=== PATIENT | female | born 1970 | race Caucasian/White ===

== ENCOUNTER 2016-09-07 11:51 | Emergency (ER) | payer BC, MEDICARE ==
[2016-09-07 12:09] VITALS: RESP 16
--- NOTE | 2016-09-07 12:47 | ED ---
Back Pain [facility] - General Chief Complaint: Back Pain/Injury Stated Complaint: BACK PAIN Time Seen by Provider: 09/07/16 12:10 Source: patient, family Limitations: no limitations - History of Present Illness Initial Comments: Patient is a 46-year-old female with a medical history significant for end-stage renal failure status post renal transplant, GERD, hypertension, and breast cancer. Patient presents to the emergency department with a chief complaint of thoracic back pain that has progressively gotten worse since Friday of last week. Patient believes symptoms started after she was washing the floors kneeling down on all 4 extremities. Patient currently rates pain 10 out of 10, described as dull and aching sometimes sharp and stabbing. Patient states that the back pain wraps around on both sides into her ribs and it is painful when she takes deep breath. Pain is exacerbated with movement, somewhat relieved at rest. Patient states she has been taking Nati's aspirin and Advil at home with minimal relief. Patient denies chills, fevers, nausea, vomiting, shortness of breath, chest pain, abdominal pain, urinary incontinence or fecal incontinence, saddle anesthesia. Patient denies any recent spinal procedures. Patient denies any radiation into her extremities. Patient states that she is currently on prednisone 10 mg daily and her last lab work was approximately 2 weeks ago where she believes her creatinine was 0.8. Patient states she has had back pain in the past but many years ago. MD Complaint: back pain - Related Data Home Medications Medication Instructions Recorded Confirmed FLUoxetine HCL [PROzac] 40 mg PO DAILY 11/10/14 09/07/16 Omeprazole 40 mg PO BID 11/10/14 09/07/16 Ondansetron HCl [Zofran] 8 mg PO TID-W/MEALS 11/10/14 09/07/16 Metoprolol Tartrate 50 mg PO BID 09/07/16 09/07/16 Mycophenolate Mofetil [Cellcept] 500 mg PO BID 09/07/16 09/07/16 Tacrolimus [Prograf] 2.5 mg PO BID 09/07/16 09/07/16 predniSONE 10 mg PO DAILY 09/07/16 09/07/16 Previous Rx's Medication Instructions Recorded Hydrocodone/Acetaminophen [[place] 1 - 2 each PO Q4HR PRN #30 tab 04/21/15 5-325] HYDROcodone/APAP 5-325MG [[place] 1 tab PO Q4HR PRN #12 tab 09/07/16 5-325] Orphenadrine [Norflex] 100 mg PO Q12H #6 tablet.er 09/07/16 Allergies Allergy/AdvReac Type Severity Reaction Status Date / Time baclofen Allergy "could not Verified 09/07/16 12:05 function" codeine Allergy Vomiting Verified 09/07/16 12:05 sertraline HCl [From Zoloft] Allergy Rash/Hives Verified 09/07/16 12:05 Review of Systems ROS Statement: Those systems with pertinent positive or pertinent negative responses have been documented in the HPI. ROS Other: All systems not noted in ROS Statement are negative. Past Medical History Past Medical History: Cancer, Dialysis, GERD/Reflux, Hypertension, Renal Disease Additional Past Medical History / Comment(s): migraines, - hemodialysis TUE,RACHEL, SAT, end stage renal failure, hx heart murmer, anemia, hx breast cancer History of Any Multi-Drug Resistant Organisms: None Reported Past Surgical History: Section, Hysterectomy, Tonsillectomy Additional Past Surgical History / Comment(s): peritoneal dialysis catheter insertion/removal, hemodialysis fistula-rt arm Past Anesthesia/Blood Transfusion Reactions: Previous Problems w/ Anesthesia, Postoperative Nausea & Vomiting (PONV) Additional Past Anesthesia/Blood Transfusion Reaction / Comment(s): sometimes causes High BP Past Psychological History: Depression Smoking Status: Former smoker Past Alcohol Use History: None Reported Additional Past Alcohol Use History / Comment(s): quit smoking 1988 Past Drug Use History: None Reported - Past Family History Sister(s) Family Medical History: Cancer Mother Family Medical History: Cancer General Exam Limitations: no limitations General appearance: alert, in no apparent distress, other (Patient is sitting in a wheelchair leaning to the left side for comfort.) Head exam: Present: atraumatic, normocephalic, normal inspection Eye exam: Present: normal appearance Pupils: Present: normal accommodation ENT exam: Present: normal exam, normal oropharynx, mucous membranes moist, normal external ear exam Neck exam: Present: normal inspection, full ROM. Absent: tenderness, lymphadenopathy Respiratory exam: Present: normal lung sounds bilaterally. Absent: respiratory distress, wheezes, rales, rhonchi, chest wall tenderness, decreased breath sounds Cardiovascular Exam: Present: regular rate, normal rhythm, normal heart sounds, systolic murmur GI/Abdominal exam: Present: soft, normal bowel sounds. Absent: distended, tenderness Extremities exam: Present: normal inspection, full ROM, normal capillary refill. Absent: tenderness, pedal edema, calf tenderness Back exam: Present: normal inspection, tenderness, vertebral tenderness ( Patient has tenderness starting around the T4 region to the T9 to T10 region). Absent: full ROM (Patient has pain with flexion and extension), CVA tenderness ( R), CVA tenderness (L), paraspinal tenderness, rash noted Expanded Back exam: Absent: saddle anesthesia Back exam: Negative Straight Leg Raising: Left, Right Neurological exam: Present: alert, oriented X3, normal gait, other (No focal deficits noted) Psychiatric exam: Present: normal affect, normal mood Skin exam: Present: warm, dry, intact, normal color. Absent: rash Course Vital Signs 09/07/16 09/07/16 12:07 13:55 Temperature 98 F 97.8 F Pulse Rate 93 78 Respiratory 16 16 Rate Blood Pressure 107/69 134/78 O2 Sat by Pulse 98 98 Oximetry Medical Decision Making - Medical Decision Making Acute thoracic back pain. X-rays negative for fractures. Patient given muscle relaxer and pain medicine and instructed to follow-up with primary care physician or orthopedic surgeon if symptoms persist. Patient instructed to return to the emergency department if symptoms do not improve or get worse. Patient agrees with treatment plan. Discharge instructions and return parameters reviewed. - Radiology Data Radiology results: report reviewed Lumbar sacral spine: Mild levoscoliosis. No spondylolysis or spondylolisthesis. Multiple spondylosis. Loss of disc height present at L5 to S1, L4 to 5, and L3 to 4. Bone mineralization is maintained. Vertebral body height and alignment are normal. Impression: Degenerative disc disease. Thoracic spine x-ray: Mild spinal curvature. Multilevel spondylosis. Thoracic vertebral bodies show preserved height, alignment. Bone mineralization is reduced. Some loss of disc height and intervertebral levels. Impression: Degenerative disc disease. Osteopenia. As read by radiologist Dr. Orellana. Disposition Clinical Impression: Thoracic back pain, Degenerative disc disease, Osteopenia determined by x-ray Disposition: HOME SELF-CARE Condition: Good Instructions: Back Pain (ED) Additional Instructions: Please follow-up with primary care physician as directed. Follow-up with orthopedic surgeon as needed. Please return to the emergency department if symptoms do not improve or get worse. Prescriptions: HYDROcodone/APAP 5-325MG [[place] 5-325] 1 tab PO Q4HR PRN #12 tab PRN Reason: Pain Orphenadrine [Norflex] 100 mg PO Q12H #6 tablet.er Referrals: Magdalena Gray DO [Primary Care Provider] - 1-2 days Lux Payne PAC [PHYSICIAN DESTATICIZER FEEDER] - 09/16/16 (Follow-up as needed.) Time of Disposition: 14:30
--- NOTE | 2016-09-07 12:50 | XR ---
Lumbosacral spine history: Low back strain, pain 5 views of the lumbosacral spine, no comparisons There is a mild levoscoliosis. No spondylolysis or spondylolisthesis. There is multilevel spondylosis . Loss of disc height present at L5-S1, L4-5 and L3-4. Bone mineralization is maintained. Vertebral b wilman height and alignment are normal. IMPRESSION: Degenerative disc disease.
[2016-09-07] MEDS ORDERED: MORPHINE SULFATE 10 MG/ML SYRINGE IM STA (13:39)
--- NOTE | 2016-09-07 13:39 | XR ---
Thoracic spine HISTORY: Mid back strain 3 views of the thoracic spine There is a mild spinal curvature. There is multilevel spondylosis. Thoracic vertebral bodies show pre served height, alignment. Bone mineralization is reduced. Some loss of disc height and intervertebral levels. IMPRESSION: Degenerative disc disease. Osteopenia.
[2016-09-07 13:56] VITALS: BP 134/78; PULSE 78; TEMP 97.8
== END 2016-09-07 13:55 | disposition home or self-care (01) ==
LOC: EC 11:51
DX: M51.34 Other intervertebral disc degeneration, thoracic region (principal); M51.37 Other intervertebral disc degeneration, lumbosacral region; M85.88 Other specified disorders of bone density and structure, other site; M41.86 Other forms of scoliosis, lumbar region; I12.0 Hypertensive chronic kidney disease with stage 5 chronic kidney disease or end stage renal disease; N18.6 End stage renal disease; D64.9 Anemia, unspecified; K21.9 Gastro-esophageal reflux disease without esophagitis; F32.9 Major depressive disorder, single episode, unspecified; Z87.891 Personal history of nicotine dependence; Z79.52 Long term (current) use of systemic steroids; Z79.899 Other long term (current) drug therapy; Z88.5 Allergy status to narcotic agent; Z88.8 Allergy status to other drugs, medicaments and biological substances; Z85.3 Personal history of malignant neoplasm of breast; Z99.2 Dependence on renal dialysis; Z94.0 Kidney transplant status
CPT/HCPCS: 72072; 72110; 99283; 96372; J2270

== ENCOUNTER 2019-03-27 12:22 | Observation (INO) | payer MEDICARE, OTHER ==
[2019-03-27 13:12] LABS: Basophils % (A) 1 %; Eosinophils # (A) 0.1 k/uL (0-0.7); Eosinophils % (A) 2 %; HCT 37.5 % (34.0-46.0); HGB 12.6 gm/dL (11.4-16.0); Lymphocytes # (A) 2.6 k/uL (1.0-4.8); Lymphocytes % (A) 30 %; MCH 29.4 pg (25.0-35.0); MCHC 33.5 g/dL (31.0-37.0); MCV 87.9 fL (80.0-100.0); Mean Platelet Volume 7.2; Monocytes # (A) 0.6 k/uL (0-1.0); Monocytes % (A) 7 %; Neutrophils # (A) 5.1 k/uL (1.3-7.7); Neutrophils % (A) 59 %; Platelet Count 241 k/uL (150-450); RBC 4.27 m/uL (3.80-5.40); WBC 8.7 k/uL (3.8-10.6)
[2019-03-27 13:22] LABS: Albumin 4.3 g/dL (3.5-5.0); Calcium 10.2 mg/dL (8.4-10.2); Magnesium 1.6 mg/dL (1.6-2.3); Potassium 4.4 mmol/L (3.5-5.1); Total Bilirubin 0.8 mg/dL (0.2-1.3)
[2019-03-27 13:24] LABS: INR 0.9 (<1.2); Partial Thromboplastin Time 24.1 sec (22.0-30.0); Prothrombin Time 10.2 sec (9.0-12.0)
--- NOTE | 2019-03-27 13:34 | ED ---
General Adult HPI - General Chief complaint: Chest Pain Stated complaint: Chest Pain Time Seen by Provider: 03/27/19 12:35 Source: EMS Mode of arrival: EMS Limitations: no limitations - History of Present Illness Initial comments: Dictation was produced using [employer] dictation software. please excuse any grammatical, word or spelling errors. Chief Complaint: 49-year-old female presents with chest pain. History of Present Illness: 49-year-old female she presents today with chest pain. Patient has no past medical history of coronary artery disease. She does have history of kidney transplant. She is on immunosuppressive medications and steroids. Her kidney transplants being managed by multimedia editor at [facility]. Patient states she was at work today at rest when she began experiencing substernal chest pressure described as someone sitting on her chest. States the pain did radiate to her jaw and was associated diaphoresis. EMS was called patient was given nitroglycerin and aspirin. Shortly after patient's symptoms were relieved. Patient has any history of coronary artery disease. Patient has no family history of coronary artery disease. Denies tobacco use. no History of hypertension or dyslipidemia. The ROS documented in this emergency department record has been reviewed and confirmed by me. Those systems with pertinent positive or negative responses have been documented in the HPI. All other systems are other negative and/or noncontributory. PHYSICAL EXAM: General Impression: Alert and oriented x3, not in acute distress HEENT: Normocephalic atraumatic, extra-ocular movements intact, pupils equal and reactive to light bilaterally, mucous membranes moist. Cardiovascular: Heart regular rate and rhythm, S1&S2 audible, no murmurs, rubs or gallops Chest: Lungs clear to auscultation bilaterally, no rhonchi, no wheeze, no rales Abdomen: Bowel sounds present, abdomen soft, non-tender, non-distended, no organomegaly Musculoskeletal: Pulses present and equal in all extremities, no peripheral edema Motor: no focal deficits noted Neurological: CN II-XII grossly intact, no focal motor or sensory deficits noted Skin: Intact with no visualized rashes Psych: Normal affect and mood ED course: 49 y Old female presents with symptoms concerning for acute coronary syndrome. Vital signs upon arrival are within acceptable limits. EKG does not show any signs of ischemia or infarction. Return evaluation obtained. CBC, coag panel, metabolic panel is unremarkable. Cardiac enzymes negative. Chest x-ray is not acute. Reevaluated bedside and found to be stable medical condition. She denies any pain at this time. Will admit for serial troponins and cardiology consultation. She had received aspirin prior to coming to the emergency Department provided by EMS. Patient understandable and agreeable to disposition. EKG interpretation: Ventricular rate 70, normal sinus rhythm, HI interval 1:30, QRS 78, QTc 436.. No HI prolongation, no QTC prolongation, no ST or T-wave changes noted. Overall, this EKG is unremarkable - Related Data Home Medications Medication Instructions Recorded Confirmed FLUoxetine HCL [PROzac] 40 mg PO DAILY 11/10/14 09/07/16 Omeprazole 40 mg PO BID 11/10/14 09/07/16 Ondansetron HCl [Zofran] 8 mg PO TID-W/MEALS 11/10/14 09/07/16 Metoprolol Tartrate 50 mg PO BID 09/07/16 09/07/16 Mycophenolate Mofetil [Cellcept] 500 mg PO BID 09/07/16 09/07/16 Tacrolimus [Prograf] 2.5 mg PO BID 09/07/16 09/07/16 predniSONE 10 mg PO DAILY 09/07/16 09/07/16 Previous Rx's Medication Instructions Recorded Hydrocodone/Acetaminophen [[place] 1 - 2 each PO Q4HR PRN #30 tab 04/21/15 5-325] HYDROcodone/APAP 5-325MG [[place] 1 tab PO Q4HR PRN #12 tab 09/07/16 5-325] Orphenadrine [Norflex] 100 mg PO Q12H #6 tablet.er 09/07/16 Allergies Allergy/AdvReac Type Severity Reaction Status Date / Time baclofen Allergy "could not Verified 09/07/16 12:05 function" codeine Allergy Vomiting Verified 09/07/16 12:05 sertraline HCl [From Zoloft] Allergy Rash/Hives Verified 09/07/16 12:05 Review of Systems ROS Statement: Those systems with pertinent positive or pertinent negative responses have been documented in the HPI. ROS Other: All systems not noted in ROS Statement are negative. Past Medical History Past Medical History: Cancer, Dialysis, GERD/Reflux, Hypertension, Renal Disease Additional Past Medical History / Comment(s): migraines, - hemodialysis TUE,RACHEL,SAT, end stage renal failure, hx heart murmer, anemia, hx breast cancer History of Any Multi-Drug Resistant Organisms: None Reported Past Surgical History: Section, Hysterectomy, Tonsillectomy Additional Past Surgical History / Comment(s): peritoneal dialysis catheter insertion/removal, hemodialysis fistula-rt arm, kidney transplant Past Anesthesia/Blood Transfusion Reactions: Previous Problems w/ Anesthesia, Postoperative Nausea & Vomiting (PONV) Additional Past Anesthesia/Blood Transfusion Reaction / Comment(s): sometimes causes High BP Past Psychological History: Depression Smoking Status: Former smoker Past Alcohol Use History: None Reported Past Drug Use History: None Reported - Past Family History Sister(s) Family Medical History: Cancer Mother Family Medical History: Cancer General Exam Limitations: no limitations Course Vital Signs 03/27/19 03/27/19 12:27 14:01 Temperature 98.7 F Pulse Rate 86 76 Respiratory 18 18 Rate Blood Pressure 154/80 132/84 O2 Sat by Pulse 99 99 Oximetry Medical Decision Making - Lab Data Result diagrams: 03/27/19 12:40 03/27/19 12:40 Lab Results 03/27/19 03/27/19 03/27/19 Range/Units 12:40 12:40 12:40 WBC 8.7 (3.8-10.6) k/uL RBC 4.27 (3.80-5.40) m/uL Hgb 12.6 (11.4-16.0) gm/dL Hct 37.5 (34.0-46.0) % MCV 87.9 (80.0-100.0) fL MCH 29.4 (25.0-35.0) pg MCHC 33.5 (31.0-37.0) g/dL RDW 13.0 (11.5-15.5) % Plt Count 241 (150-450) k/uL Neutrophils % 59 % Lymphocytes % 30 % Monocytes % 7 % Eosinophils % 2 % Basophils % 1 % Neutrophils # 5.1 (1.3-7.7) k/uL Lymphocytes # 2.6 (1.0-4.8) k/uL Monocytes # 0.6 (0-1.0) k/uL Eosinophils # 0.1 (0-0.7) k/uL Basophils # 0.0 (0-0.2) k/uL PT 10.2 (9.0-12.0) sec INR 0.9 (<1.2) APTT 24.1 (22.0-30.0) sec Sodium 138 (137-145) mmol/L Potassium 4.4 (3.5-5.1) mmol/L Chloride 104 (98-107) mmol/L Carbon Dioxide 26 (22-30) mmol/L Anion Gap 8 mmol/L BUN 25 H (7-17) mg/dL Creatinine 1.20 H (0.52-1.04) mg/dL Est GFR (CKD-EPI)AfAm 61 (>60 ml/min/1.73 sqM) Est GFR (CKD-EPI)NonAf 53 (>60 ml/min/1.73 sqM) Glucose 86 (74-99) mg/dL Calcium 10.2 (8.4-10.2) mg/dL Magnesium 1.6 (1.6-2.3) mg/dL Total Bilirubin 0.8 (0.2-1.3) mg/dL AST 22 (14-36) U/L ALT 20 (4-34) U/L Alkaline Phosphatase 79 (38-126) U/L Troponin I (0.000-0.034) ng/mL Total Protein 7.0 (6.3-8.2) g/dL Albumin 4.3 (3.5-5.0) g/dL Lipase 121 (23-300) U/L 03/27/19 Range/Units 12:40 WBC (3.8-10.6) k/uL RBC (3.80-5.40) m/uL Hgb (11.4-16.0) gm/dL Hct (34.0-46.0) % MCV (80.0-100.0) fL MCH (25.0-35.0) pg MCHC (31.0-37.0) g/dL RDW (11.5-15.5) % Plt Count (150-450) k/uL Neutrophils % % Lymphocytes % % Monocytes % % Eosinophils % % Basophils % % Neutrophils # (1.3-7.7) k/uL Lymphocytes # (1.0-4.8) k/uL Monocytes # (0-1.0) k/uL Eosinophils # (0-0.7) k/uL Basophils # (0-0.2) k/uL PT (9.0-12.0) sec INR (<1.2) APTT (22.0-30.0) sec Sodium (137-145) mmol/L Potassium (3.5-5.1) mmol/L Chloride (98-107) mmol/L Carbon Dioxide (22-30) mmol/L Anion Gap mmol/L BUN (7-17) mg/dL Creatinine (0.52-1.04) mg/dL Est GFR (CKD-EPI)AfAm (>60 ml/min/1.73 sqM) Est GFR (CKD-EPI)NonAf (>60 ml/min/1.73 sqM) Glucose (74-99) mg/dL Calcium (8.4-10.2) mg/dL Magnesium (1.6-2.3) mg/dL Total Bilirubin (0.2-1.3) mg/dL AST (14-36) U/L ALT (4-34) U/L Alkaline Phosphatase (38-126) U/L Troponin I <0.012 (0.000-0.034) ng/mL Total Protein (6.3-8.2) g/dL Albumin (3.5-5.0) g/dL Lipase (23-300) U/L Disposition Clinical Impression: Chest pain Disposition: ADMITTED IP TO THIS [facility] Condition: Fair Referrals: Magdalena Gray DO [Primary Care Provider] - 1-2 days Decision Time: 15:03
--- NOTE | 2019-03-27 14:33 | XR ---
EXAMINATION TYPE: XR chest 2V DATE OF EXAM: 03/27/2019 HISTORY: Chest Pain. REFERENCE: Previous study dated 10/26/2013. FINDINGS: The lungs remain clear. Pleural spaces are clear. The heart is not enlarged. IMPRESSION: NO ACTIVE INTRATHORACIC DISEASE.
[2019-03-27] MEDS ORDERED: NITROGLYCERIN SL TABS 0.4 MG TAB SUBLINGUAL PRN (15:00)
[2019-03-27] MEDS: METOPROLOL TARTRATE 50 MG TAB PO SCH (20:31)
[2019-03-27] MEDS: PANTOPRAZOLE 40 MG TABLET PO SCH (20:31)
[2019-03-27] MEDS: MYCOPHENOLATE MOFETIL 500 MG TAB PO SCH (20:32)
[2019-03-27] MEDS ORDERED: ACETAMINOPHEN TAB 325 MG TAB PO PRN (21:06)
[2019-03-28 06:42] LABS: Cholesterol 206 mg/dL (<200); HDL Cholesterol 47 mg/dL (40-60); LDL Cholesterol,Calculated 87 mg/dL (0-99); Triglycerides 358 mg/dL (<150)
[2019-03-28] MEDS: PANTOPRAZOLE 40 MG TABLET PO SCH (06:44)
[2019-03-28 07:09] VITALS: RESP 18
[2019-03-28] MEDS: MYCOPHENOLATE MOFETIL 500 MG TAB PO SCH (08:51)
[2019-03-28] MEDS ORDERED: TACROLIMUS 2 MG PO SCH (09:00)
[2019-03-28] MEDS ORDERED: predniSONE 10 MG TAB PO SCH (09:00)
[2019-03-28] MEDS ORDERED: ASPIRIN 325 MG TAB PO SCH (09:00)
[2019-03-28] MEDS: METOPROLOL TARTRATE 50 MG TAB PO SCH (11:08)
[2019-03-28 11:17] VITALS: BP 112/74; PULSE 81; TEMP 98.4
--- NOTE | 2019-03-28 11:58 | P.CRDCN ---
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 She was at work yesterday when she was finalizing her patient's chart and started experiencing discomfort in the chest. The patient described the discomfort as a pressure in the mid of the chest, without any radiation to the arm or neck or shoulders, but it was associated with mild sweating. No shortness of breath or syncope. Because of that she decided to come to the emergency room. In the emergency room she underwent a chest x-ray which showed no acute abnormalities. The EKG showed sinus rhythm without any ST or T-wave abnormalities. The rest of the blood work came in to be unremarkable. The patient continues to be chest pain- free during her hospital stay. She stated on the way to the emergency room she was given nitroglycerin with improvement in her symptoms and the time she arrived the emergency room she was chest pain-free and no more episodes of chest discomfort. I did advise the patient that she needs to have a stress test to rule out severe coronary artery disease. Today is Friday and the patient would like to go home and have the test done as an outpatient. Having said that I am getting the patient up and around and if she is asymptomatic she possibly can go home and have the test done as an outpatient. Past Medical History Past Medical History: Cancer, Dialysis, GERD/Reflux, Hypertension, Renal Disease Additional Past Medical History / Comment(s): migraines, - hemodialysis TUE,RACHEL,SAT, end stage renal failure, pt has kidney transplant 2016 hx heart murmer, anemia, hx breast cancer History of Any Multi-Drug Resistant Organisms: None Reported Past Surgical History: Section, Hysterectomy, Tonsillectomy Additional Past Surgical History / Comment(s): peritoneal dialysis catheter insertion/removal, hemodialysis fistula-rt arm, kidney transplant Past Anesthesia/Blood Transfusion Reactions: Previous Problems w/ Anesthesia, Postoperative Nausea & Vomiting (PONV) Additional Past Anesthesia/Blood Transfusion Reaction / Comment(s): sometimes causes High BP Past Psychological History: Depression Smoking Status: Former smoker Past Alcohol Use History: None Reported Additional Past Alcohol Use History / Comment(s): quit smoking 1988 Past Drug Use History: None Reported - Past Family History Sister(s) Family Medical History: Cancer Additional Family Medical History / Comment(s): melanoma Mother Family Medical History: Cancer Additional Family Medical History / Comment(s): lung cancer Medications and Allergies Home Medications Medication Instructions Recorded Confirmed Type Metoprolol Tartrate 50 mg PO BID 09/07/16 03/27/19 History Mycophenolate Mofetil [Cellcept] 500 mg PO BID 09/07/16 03/27/19 History predniSONE 10 mg PO DAILY 09/07/16 03/27/19 History Omeprazole 20 mbq PO BID 03/27/19 03/27/19 History Tacrolimus [Envarsus Xr] 2 mg PO DAILY 03/27/19 03/27/19 History Allergies Allergy/AdvReac Type Severity Reaction Status Date / Time baclofen Allergy "could not Verified 03/27/19 16:14 function" codeine Allergy Vomiting Verified 03/27/19 16:14 sertraline HCl [From Zoloft] Allergy Rash/Hives Verified 03/27/19 16:14 Physical Exam Vitals: Vital Signs Temp Pulse Pulse Resp BP BP Pulse Ox 03/28/19 11:16 98.4 F 81 18 112/74 97 03/28/19 08:00 18 03/28/19 07:08 97.6 F 75 18 118/78 98 03/28/19 04:00 97.7 F 57 L 17 115/63 98 03/28/19 03:05 71 03/27/19 23:42 97.7 F 71 17 112/57 99 03/27/19 23:39 15 03/27/19 18:47 98.1 F 85 17 107/65 98 03/27/19 16:16 97.8 F 82 18 154/89 99 03/27/19 16:02 98.6 F 03/27/19 16:01 98.6 F 79 20 130/79 98 03/27/19 15:10 83 18 130/79 97 03/27/19 14:01 76 18 132/84 99 03/27/19 12:27 98.7 F 86 18 154/80 99 Intake and Output 03/27/19 03/28/19 03/28/19 22:59 06:59 14:59 Intake Total 480 300 Balance 480 300 Intake: Oral 480 300 Other: Voiding Method Toilet # Voids 1 Weight 78.018 kg - Constitutional General appearance: no acute distress - Respiratory Respiratory: bilateral: CTA - Cardiovascular Rhythm: regular Heart sounds: normal: S1, S2 Results 03/27/19 12:40 03/27/19 12:40 Cardiac Enzymes 03/27/19 03/27/19 03/27/19 Range/Units 12:40 12:40 18:23 AST 22 (14-36) U/L Troponin I <0.012 <0.012 (0.000-0.034) ng/mL 03/28/19 Range/Units 01:05 AST (14-36) U/L Troponin I <0.012 (0.000-0.034) ng/mL Coagulation 03/27/19 Range/Units 12:40 PT 10.2 (9.0-12.0) sec APTT 24.1 (22.0-30.0) sec Lipids 03/28/19 Range/Units 01:05 Triglycerides 358 H (<150) mg/dL Cholesterol 206 H (<200) mg/dL HDL Cholesterol 47 (40-60) mg/dL CBC 03/27/19 Range/Units 12:40 WBC 8.7 (3.8-10.6) k/uL RBC 4.27 (3.80-5.40) m/uL Hgb 12.6 (11.4-16.0) gm/dL Hct 37.5 (34.0-46.0) % Plt Count 241 (150-450) k/uL Comprehensive Metabolic Panel 03/27/19 Range/Units 12:40 Sodium 138 (137-145) mmol/L Potassium 4.4 (3.5-5.1) mmol/L Chloride 104 (98-107) mmol/L Carbon Dioxide 26 (22-30) mmol/L BUN 25 H (7-17) mg/dL Creatinine 1.20 H (0.52-1.04) mg/dL Glucose 86 (74-99) mg/dL Calcium 10.2 (8.4-10.2) mg/dL AST 22 (14-36) U/L ALT 20 (4-34) U/L Alkaline Phosphatase 79 (38-126) U/L Total Protein 7.0 (6.3-8.2) g/dL Albumin 4.3 (3.5-5.0) g/dL Current Medications Generic Name Dose Route Start Last Admin Trade Name Freq PRN Reason Stop Dose Admin Acetaminophen 650 mg 03/27/19 21:06 03/27/19 21:18 Tylenol Tab PO 650 mg Q6HR PRN Administration Fever and/ or Pain Aspirin 325 mg 03/28/19 09:00 Aspirin PO DAILY LAURY Metoprolol Tartrate 50 mg 03/27/19 21:00 03/28/19 11:08 Lopressor PO 50 mg BID LAURY Administration Mycophenolate Mofetil 500 mg 03/27/19 21:00 03/28/19 08:51 Cellcept PO 500 mg BID LAURY Administration Nitroglycerin 0.4 mg 03/27/19 15:00 Nitrostat SUBLINGUAL Q5M PRN Chest Pain Non-Formulary Medication 2 mg 03/28/19 09:00 03/28/19 11:08 Tacrolimus [Envarsus Xr] PO Not Given DAILY LAURY Pantoprazole Sodium 40 mg 03/27/19 21:00 03/28/19 06:44 Protonix PO 40 mg AC-[id number] LAURY Administration Prednisone 10 mg 03/28/19 09:00 03/28/19 08:51 PO 10 mg DAILY LAURY Administration Intake and Output 03/27/19 03/28/19 03/28/19 22:59 06:59 14:59 Intake Total 480 300 Balance 480 300 Intake: Oral 480 300 Other: Voiding Method Toilet # Voids 1 Weight 78.018 kg 03/27/19 12:40 03/27/19 12:40 Assessment and Plan Assessment: Assessment #1 chest discomfort which has resolved #2 status post kidney transplant #3 hypertension Plan #1 acute coronary syndrome was ruled out #2 the patient continues to be chest pain-free throughout her hospital stay #3 stress test need to be done to rule out severe CAD. The patient would like to have the test as an outpatient. Thank you for allowing us participate in her care
--- NOTE | 2019-03-28 15:27 | P.HPIM ---
History of Present Illness This is combined H&P and discharge summary. This is a pleasant 49 years old femalewith past medical history of hypertension, migraine, history of end-stage renal disease was on hemodialysis she got kidney transplant in 2016, history of breast cancer, hysterectomy. This is because of chest painof one-day duration, central nonradiating but it/10 in severity associated with some sweating.currently patient chest pain has completely resolved and she is chest pain-free. She denies any other symptoms. She denies dyspnea. No dizziness, no change in urine or bowel habits. No nausea vomiting. on admission her vitals stable as well as currently.Unremarkable CBC, BMP, INR, Liver Enzymes except for Mildly Elevated Creatinine of 1.2. Patient states that her usual number is between 1-1.4 and that she follows up with [facility] monthly and her appointment is tomorrow to check her creatinine . Triglycerides Are 358 and Cholesterol 206.she has serial troponins that are less than 0.0123. Lipase 121.chest x-ray:no acute process per radiologist.. EKG showing normal sinus rhythm at [address]-T changes. patient Is started on aspirin 325 mg in the emergency room, also she is on metoprolol 50 mg on mycophenolate, Protonix, prednisone and tacrolimus. CONSTITUTIONAL: No fever, no malaise, no fatigue. HEENT: No recent visual problems or hearing problems. Denied any sore throat. CARDIOVASCULAR: No orthopnea, PND, no palpitations, no syncope. PULMONARY: No shortness of breath, no cough, no hemoptysis. GASTROINTESTINAL: No diarrhea, no nausea, no vomiting, no abdominal pain. Normoactive bowel sounds. NEUROLOGICAL: No headaches, no weakness, no numbness. HEMATOLOGICAL: Denies any bleeding or petechiae. GENITOURINARY: Denies any burning micturition, frequency, or urgency. MUSCULOSKELETAL/RHEUMATOLOGICAL: Denies any joint pain, swelling, or any muscle pain. ENDOCRINE: Denies any polyuria or polydipsia. physical exam GENERAL: The patient is alert and oriented x3, not in any acute distress. Well developed, well nourished. HEENT: Pupils are round and equally reacting to light. EOMI. No scleral icterus. No conjunctival pallor. Normocephalic, atraumatic. No pharyngeal erythema. No thyromegaly. CARDIOVASCULAR: S1 and S2 present. No murmurs, rubs, or gallops. PULMONARY: Chest is clear to auscultation, no wheezing or crackles. ABDOMEN: Soft, nontender, nondistended, normoactive bowel sounds. No palpable organomegaly. MUSCULOSKELETAL: No joint swelling or deformity. EXTREMITIES: No cyanosis, clubbing, or pedal edema. NEUROLOGICAL: Gross neurological examination did not reveal any focal deficits. SKIN: No rashes. No petechiae assessment -Chest pain, resolved completely. Patient's wants to do stress test as an outpatient and centerless grinder operator already cleared the patient. Continue with aspirin and metoprolol, nitroglycerin when necessary -history of kidney transplant, continue with her medication of mycophenolate, Protonix, prednisone and tacrolimus. -hypertension, continue with metoprolol -hyperlipidemia, patient is counseled with diets restrictionand low-fat diet. She does not want prescription medication because she is afraid it might interfere with her other antirejection medication and she wants to talk to her as planned physician and centerless grinder operator first. -history of migraine -History of breast cancer -Status post hysterectomy Problems and management plan were discussed with the patient and he verbalized understanding and acceptance Patient was found stable and can be discharged home however he needs follow-up as an outpatient. Patient was instructed to follow up with PCP within one week and patient agreesthe patient was instructed to follow up with Dr. Martinez in one week and chromic appointment and also with her kidney transplant center at [facility] tomorrow as she has appointment Time spent more than 35 minutes Past Medical History Past Medical History: Cancer, Dialysis, GERD/Reflux, Hypertension, Renal Disease Additional Past Medical History / Comment(s): migraines, - hemodialysis TUE,RACHEL,SAT, end stage renal failure, pt has kidney transplant 2016 hx heart murmer, anemia, hx breast cancer History of Any Multi-Drug Resistant Organisms: None Reported Past Surgical History: Section, Hysterectomy, Tonsillectomy Additional Past Surgical History / Comment(s): peritoneal dialysis catheter insertion/removal, hemodialysis fistula-rt arm, kidney transplant Past Anesthesia/Blood Transfusion Reactions: Previous Problems w/ Anesthesia, Postoperative Nausea & Vomiting (PONV) Additional Past Anesthesia/Blood Transfusion Reaction / Comment(s): sometimes causes High BP Past Psychological History: Depression Smoking Status: Former smoker Past Alcohol Use History: None Reported Additional Past Alcohol Use History / Comment(s): quit smoking 1988 Past Drug Use History: None Reported - Past Family History Sister(s) Family Medical History: Cancer Additional Family Medical History / Comment(s): melanoma Mother Family Medical History: Cancer Additional Family Medical History / Comment(s): lung cancer Medications and Allergies Home Medications Medication Instructions Recorded Confirmed Type Metoprolol Tartrate 50 mg PO BID 09/07/16 03/27/19 History Mycophenolate Mofetil [Cellcept] 500 mg PO BID 09/07/16 03/27/19 History predniSONE 10 mg PO DAILY 09/07/16 03/27/19 History Omeprazole 20 mbq PO BID 03/27/19 03/27/19 History Tacrolimus [Envarsus Xr] 2 mg PO DAILY 03/27/19 03/27/19 History Allergies Allergy/AdvReac Type Severity Reaction Status Date / Time baclofen Allergy "could not Verified 03/27/19 16:14 function" codeine Allergy Vomiting Verified 03/27/19 16:14 sertraline HCl [From Zoloft] Allergy Rash/Hives Verified 03/27/19 16:14 Physical Exam Vitals: Vital Signs Temp Pulse Pulse Resp BP BP Pulse Ox 03/28/19 11:16 98.4 F 81 18 112/74 97 03/28/19 08:00 18 03/28/19 07:08 97.6 F 75 18 118/78 98 03/28/19 04:00 97.7 F 57 L 17 115/63 98 03/28/19 03:05 71 03/27/19 23:42 97.7 F 71 17 112/57 99 03/27/19 23:39 15 03/27/19 18:47 98.1 F 85 17 107/65 98 03/27/19 16:16 97.8 F 82 18 154/89 99 03/27/19 16:02 98.6 F 03/27/19 16:01 98.6 F 79 20 130/79 98 03/27/19 15:10 83 18 130/79 97 Intake and Output 03/28/19 03/28/19 03/28/19 06:59 14:59 22:59 Intake Total 300 236 Balance 300 236 Intake: Oral 300 236 Other: Voiding Method Toilet # Voids 1 Results CBC & Chem 7: 03/27/19 12:40 03/27/19 12:40 Labs: Abnormal Lab Results - Last 24 Hours (Table) 03/28/19 Range/Units 01:05 Triglycerides 358 H (<150) mg/dL Cholesterol 206 H (<200) mg/dL Thrombosis Risk Factor Assmnt - Choose All That Apply Any of the Below Risk Factors Present?: Yes Each Factor Represents 1 point: Obesity (BMI >25) Other Risk Factors: No Thrombosis Risk Factor Assessment Total Risk Factor Score: 1 Thrombosis Risk Factor Assessment Level: Low Risk
== END 2019-03-28 15:35 | disposition home or self-care (01) ==
LOC: EC 12:22 → 1SOBS 15:00
PROVIDERS: ADMIT Internal Medicine; ATTEND Internal Medicine
DX: R07.89 Other chest pain (principal); E78.5 Hyperlipidemia, unspecified; I12.0 Hypertensive chronic kidney disease with stage 5 chronic kidney disease or end stage renal disease; N18.6 End stage renal disease; Z80.1 Family history of malignant neoplasm of trachea, bronchus and lung; Z80.8 Family history of malignant neoplasm of other organs or systems; Z85.3 Personal history of malignant neoplasm of breast; Z87.891 Personal history of nicotine dependence; Z90.710 Acquired absence of both cervix and uterus; Z94.0 Kidney transplant status; Z99.2 Dependence on renal dialysis; F32.9 Major depressive disorder, single episode, unspecified; Z79.52 Long term (current) use of systemic steroids; Z88.5 Allergy status to narcotic agent; Z88.8 Allergy status to other drugs, medicaments and biological substances; R79.89 Other specified abnormal findings of blood chemistry; Z79.899 Other long term (current) drug therapy
CPT/HCPCS: 93005 ×2; 99285; 36415; 80061; 80053; 83690; 83735; 84484 ×2; 85025; 85610; 85730; 71046; G0378 ×2; J7517 ×2; J7512

== ENCOUNTER 2021-12-20 16:23 | Inpatient (IN) | payer OTHER, MEDICARE ==
[2021-12-20 17:51] LABS: Basophils % (A) 0 %; Eosinophils % (A) 0 %; HCT 42.4 % (34.0-46.0); HGB 14.2 gm/dL (11.4-16.0); Lymphocytes # (A) 0.5 k/uL (1.0-4.8); Lymphocytes % (A) 3 %; MCHC 33.5 g/dL (31.0-37.0); MCV 89.5 fL (80.0-100.0); Mean Platelet Volume 7.2; Monocytes # (A) 0.5 k/uL (0-1.0); Monocytes % (A) 3 %; Neutrophils # (A) 14.5 k/uL (1.3-7.7); Neutrophils % (A) 93 %; Platelet Count 207 k/uL (150-450); RBC 4.73 m/uL (3.80-5.40); RDW 13.4 % (11.5-15.5); WBC 15.6 k/uL (3.8-10.6)
[2021-12-20 17:58] LABS: Albumin 4.4 g/dL (3.5-5.0); Calcium 9.8 mg/dL (8.4-10.2); Potassium 3.9 mmol/L (3.5-5.1); Total Bilirubin 1.3 mg/dL (0.2-1.3)
[2021-12-20] MEDS ORDERED: SODIUM CHLORIDE 0.9% 2,000 ML IV STA (18:05)
[2021-12-20] MEDS ORDERED: PIPERACILLIN-TAZOBACTAM 3.375 GM in SODIUM CHLORIDE 0.9% 100 ML IVPB STA (18:05)
[2021-12-20] MEDS ORDERED: ACETAMINOPHEN TAB 500 MG TAB PO STA (18:07)
[2021-12-20] MEDS ORDERED: ONDANSETRON 4 MG/2 ML VIAL IVP STA (18:08)
[2021-12-20] MEDS ORDERED: SODIUM CHLORIDE 0.9% 500 ML 500 ML IV ONE (18:12)
--- NOTE | 2021-12-20 18:14 | ED ---
Nausea/Vomiting/Diarrhea HPI - General Source: patient, family, RN notes reviewed Mode of arrival: wheelchair Limitations: no limitations - History of Present Illness MD complaint: nausea, vomiting, diarrhea <Orlin Khan - Last Filed: 12/20/21 23:34> <Frances Lin - Last Filed: 12/26/21 07:41> - General Chief complaint: Nausea/Vomiting/Diarrhea Stated complaint: NVD Time Seen by Provider: 12/20/21 18:04 - History of Present Illness Initial comments: This is a pleasant 51-year-old female with a history of migraine headaches, hypertension, renal disease, kidney transplant in 2016. History of renal failure and subsequent renal transplant Patient states that symptoms started on Friday with headache. She then started having nausea and vomiting and diarrhea. She also has a fever. Patient states she also has had a runny nose and cough. no changes in vision or hearing, no sore throat or difficulty with speech, no neck pain, no chest pain or shortness of breath, no abdominal pain, no changes in urination or bowel movements, no numbness or tingling, no extremity pain, no skin rashes or lesions. Past medical, surgical, social, and family history reviewed. (Orlin Khan) - Related Data Home Medications Medication Instructions Recorded Confirmed Tacrolimus [Envarsus Xr] 2 mg PO DAILY 03/27/19 12/20/21 Acetaminophen [Tylenol Extra 1,000 mg PO Q6H PRN 12/20/21 12/20/21 Strength] mycophenolate mofetiL [Cellcept] 500 mg PO BID 12/20/21 12/20/21 predniSONE 5 mg PO DAILY 12/20/21 12/20/21 Previous Rx's Medication Instructions Recorded Aspirin 81 mg PO DAILY #30 tab 12/25/21 Atorvastatin [Lipitor] 40 mg PO DAILY #30 tab 12/25/21 Metoprolol Tartrate [Lopressor] 75 mg PO BID #45 tab 12/25/21 Pantoprazole [Protonix] 40 mg PO AC-BRKFST #30 tab 12/25/21 Sodium Bicarbonate Tab 650 mg PO BID #60 tab 12/25/21 Sulfamethox-Tmp 800-160Mg [Bactrim 1 tab PO Q12HR #12 tab 12/25/21 DS 800-160 mg] amLODIPine [Norvasc] 5 mg PO DAILY #30 tab 12/25/21 hydrALAZINE HCL [Apresoline] 25 mg PO TID #90 tab 12/25/21 Allergies Allergy/AdvReac Type Severity Reaction Status Date / Time baclofen Allergy "could not Verified 12/20/21 20:33 function" codeine Allergy Vomiting Verified 12/20/21 20:33 sertraline HCl [From Zoloft] Allergy Rash/Hives Verified 12/20/21 20:33 Review of Systems ROS Other: All systems not noted in ROS Statement are negative. <Orlin Khan - Last Filed: 12/20/21 23:34> ROS Other: All systems not noted in ROS Statement are negative. <Frances Lin - Last Filed: 12/26/21 07:41> ROS Statement: Those systems with pertinent positive or pertinent negative responses have been documented in the HPI. Past Medical History Past Medical History: Cancer, Dialysis, GERD/Reflux, Hypertension, Renal Disease Additional Past Medical History / Comment(s): migraines, - hemodialysis TUE ,RACHEL,SAT, end stage renal failure, pt has kidney transplant 2016 hx heart murmer, anemia, hx breast cancer History of Any Multi-Drug Resistant Organisms: None Reported Past Surgical History: Section, Hysterectomy, Tonsillectomy Additional Past Surgical History / Comment(s): peritoneal dialysis catheter insertion/removal, hemodialysis fistula-rt arm, kidney transplant Past Anesthesia/Blood Transfusion Reactions: Previous Problems w/ Anesthesia, Postoperative Nausea & Vomiting (PONV) Additional Past Anesthesia/Blood Transfusion Reaction / Comment(s): sometimes c auses High BP Past Psychological History: Depression Smoking Status: Never smoker Past Alcohol Use History: None Reported Past Drug Use History: None Reported - Past Family History Sister(s) Family Medical History: Cancer Additional Family Medical History / Comment(s): melanoma Mother Family Medical History: Cancer Additional Family Medical History / Comment(s): lung cancer <BillOrlin - Last Filed: 12/20/21 23:34> General Exam Limitations: no limitations General appearance: alert, in no apparent distress Head exam: Present: atraumatic, normocephalic, normal inspection Eye exam: Present: normal appearance, PERRL, EOMI. Absent: scleral icterus, conjunctival injection, periorbital swelling ENT exam: Present: normal exam, normal oropharynx, mucous membranes moist, normal external ear exam. Absent: mucous membranes dry Neck exam: Present: normal inspection, full ROM. Absent: tenderness, meningismus, lymphadenopathy Respiratory exam: Present: normal lung sounds bilaterally. Absent: respiratory distress, wheezes, rales, rhonchi, stridor Cardiovascular Exam: Present: normal rhythm, tachycardia, normal heart sounds. Absent: systolic murmur, diastolic murmur, rubs, gallop, clicks GI/Abdominal exam: Present: soft, normal bowel sounds. Absent: distended, tenderness, guarding, rebound, rigid Extremities exam: Present: normal inspection, full ROM, normal capillary refill. Absent: tenderness, pedal edema, joint swelling, calf tenderness Back exam: Present: normal inspection Neurological exam: Present: alert, oriented X3, CN II-XII intact Psychiatric exam: Present: normal affect, normal mood Skin exam: Present: warm, dry, intact, normal color. Absent: rash <Orlin Khan - Last Filed: 12/20/21 23:34> - General Exam Comments Initial Comments: Ill appearing 51-year-old female in mild distress. Patient noted to be tachycardic. Capillary refill sluggish at 3 seconds. No mottling. (Orlin Khan) Course <Orlin Khan - Last Filed: 12/20/21 23:34> Vital Signs 12/20/21 12/20/21 12/20/21 16:48 19:20 20:43 Temperature 102.3 F H 100 F H Pulse Rate 155 H 131 H 122 H Pulse Rate [ Pulse Oximetery ] Respiratory 18 18 16 Rate Blood Pressure 126/80 112/57 108/52 Blood Pressure [Left Arm] O2 Sat by Pulse 98 96 98 Oximetry 12/20/21 12/20/21 12/21/21 21:52 23:11 02:00 Temperature 98.8 F 98.8 F Pulse Rate 96 96 90 Pulse Rate [ Pulse Oximetery ] Respiratory 18 16 16 Rate Blood Pressure 95/51 103/64 Blood Pressure [Left Arm] O2 Sat by Pulse 98 98 Oximetry 12/21/21 12/21/21 12/21/21 06:00 08:40 11:46 Temperature 98.3 F 99.2 F Pulse Rate 99 Pulse Rate [ 96 96 Pulse Oximetery ] Respiratory 20 18 18 Rate Blood Pressure 104/54 Blood Pressure 98/58 [Left Arm] O2 Sat by Pulse 99 98 Oximetry 12/21/21 12/21/21 12:11 14:51 Temperature Pulse Rate Pulse Rate [ 86 86 Pulse Oximetery ] Respiratory 18 18 Rate Blood Pressure Blood Pressure 108/67 [Left Arm] O2 Sat by Pulse 97 Oximetry - Reevaluation(s) Reevaluation #1: 12/20/21 19:31 Note that the patient's vital signs have improved slightly with a heart rate of 131. Patient still normotensive with a systolic blood pressure of 112/75. Capillary refill approximately 3 seconds. No mottling. Patient in no r espiratory distress. (Orlin Khan) Reevaluation #2: 12/20/21 19:56 She meets criteria for severe sepsis. Additional 1000 L normal saline bolus, patient remains normotensive. Running fluids at 130 mL per hour. I'm going to order another 500 bolus. Patient does have a doubling of her creatinine. Vancomycin added to the Zosyn. Still pending urinalysis. Noncontrast CT abdomen and pelvis ordered. We'll call for admission. Capillary refill 3 seconds. Patient in no respiratory distress. 12/20/21 19:58 (Orlin Khan) Reevaluation #3: 12/20/21 20:05 Patient's troponin came back at 0.050. Urinalysis consistent with urinary tract infection. We'll hold the vancomycin and and on ceftriaxone as this appears to be related to the urinary tract. Note that the patient has a few budding yeast as well. Patient may need expansion beyond ceftriaxone. Lactic acid 2.9. (Orlin Khan) Reevaluation #4: 12/20/21 20:18 Troponin 0.50, likely demand due to heart rate (Orlin Khan) - Consultations Consultation #1: Call placed for admitting physician, [facility] (Orlin Khan) Consultation #2: Case discussed in detail with him from [facility] hospitalist group. Discussed the possibility of transferring the patient first keep the patient here. He believes they can manage the patient here with nephrology consultation. Patient will be admitted to [facility]. Patient currently tachycardic but normotensive. (Orlin Khan) Medical Decision Making - Lab Data Result diagrams: 12/20/21 17:31 12/20/21 17:31 <Orlin Khan - Last Filed: 12/20/21 23:34> - Lab Data Result diagrams: 12/25/21 07:46 12/25/21 07:46 <DeliaFrances A - Last Filed: 12/26/21 07:41> - Medical Decision Making Patient with a history of end-stage renal failure, with subsequent renal transplant. presents with fever, nausea, vomiting, diarrhea, headache, certainly consistent with symptoms of COVID-19. However other etiologies such as other viral syndromes, bacterial infection possible. Going to give the patient an initial dose of Zosyn as she likely needs sepsis criteria. Patient's case is complicated by end-stage renal failure. Well hydrated cautiously with initial 500 mL saline bolus followed by maintenance rate. Patient currently normotensive. Patient has had a runny nose and cough. Viral upper respiratory infection versus pneumonia possible as well. Appears to be consistent with infectious etiology as opposed to cardiac etiology. Patient's triage laboratory work indicates that she has a doubling of her serum creatinine with acute on chronic renal failure. I initially saw this patient in the triage area. Patient to room at 6:17 PM. Note that the patient is on antirejection medications which make her immune compromise. Patient's package center supervisor is at the [facility], Dr. Bell. The case was immediately discussed in detail with ED attending physician. Presentation, findings, treatment plan discussed in detail. Shore Worker Dr. Lin ([facility]) - Lab Data Lab Results 12/20/21 12/20/21 12/20/21 Range/Units 17:31 17:31 17:31 WBC 15.6 H (3.8-10.6) k/uL RBC 4.73 (3.80-5.40) m/uL Hgb 14.2 (11.4-16.0) gm/dL Hct 42.4 (34.0-46.0) % MCV 89.5 (80.0-100.0) fL MCH 30.0 (25.0-35.0) pg MCHC 33.5 (31.0-37.0) g/dL RDW 13.4 (11.5-15.5) % Plt Count 207 (150-450) k/uL MPV 7.2 Neutrophils % 93 % Lymphocytes % 3 % Monocytes % 3 % Eosinophils % 0 % Basophils % 0 % Neutrophils # 14.5 H (1.3-7.7) k/uL Lymphocytes # 0.5 L (1.0-4.8) k/uL Monocytes # 0.5 (0-1.0) k/uL Eosinophils # 0.0 (0-0.7) k/uL Basophils # 0.0 (0-0.2) k/uL Sodium 131 L (137-145) mmol/L Potassium 3.9 (3.5-5.1) mmol/L Chloride 95 L (98-107) mmol/L Carbon Dioxide 19 L (22-30) mmol/L Anion Gap 17 mmol/L BUN 30 H (7-17) mg/dL Creatinine 2.28 H (0.52-1.04) mg/dL Est GFR (CKD-EPI)AfAm 28 (>60 ml/min/1.73 sqM) Est GFR (CKD-EPI)NonAf 24 (>60 ml/min/1.73 sqM) Glucose 221 H (74-99) mg/dL Lactic Ac Sepsis Rflx Plasma Lactic Acid Gabriel (0.7-2.0) mmol/L Calcium 9.8 (8.4-10.2) mg/dL Phosphorus (2.5-4.5) mg/dL Magnesium (1.6-2.3) mg/dL Total Bilirubin 1.3 (0.2-1.3) mg/dL AST 33 (14-36) U/L ALT 27 (4-34) U/L Alkaline Phosphatase 98 (38-126) U/L Troponin I (0.000-0.034) ng/mL Total Protein 7.0 (6.3-8.2) g/dL Albumin 4.4 (3.5-5.0) g/dL Amylase 70 (30-110) U/L Lipase 43 (23-300) U/L Urine Color Urine Appearance (Clear) Urine pH (5.0-8.0) Ur Specific [place] (1.001-1.035) Urine Protein (Negative) Urine Glucose (UA) (Negative) Urine Ketones (Negative) Urine Blood (Negative) Urine Nitrite (Negative) Urine Bilirubin (Negative) Urine Urobilinogen (<2.0) mg/dL Ur Leukocyte Esterase (Negative) Urine RBC (0-5) /hpf Urine WBC (0-5) /hpf Urine WBC Clumps (None) /hpf Ur Squamous Epith Cells (0-4) /hpf Urine Bacteria (None) /hpf Hyaline Casts (0-2) /lpf Urine Mucus (None) /hpf Urine Yeast (Budding) (None) /hpf Coronavirus (PCR) Not Detected (Not Detectd) 12/20/21 12/20/21 12/20/21 Range/Units 18:22 18:22 18:22 WBC (3.8-10.6) k/uL RBC (3.80-5.40) m/uL Hgb (11.4-16.0) gm/dL Hct (34.0-46.0) % MCV (80.0-100.0) fL MCH (25.0-35.0) pg MCHC (31.0-37.0) g/dL RDW (11.5-15.5) % Plt Count (150-450) k/uL MPV Neutrophils % % Lymphocytes % % Monocytes % % Eosinophils % % Basophils % % Neutrophils # (1.3-7.7) k/uL Lymphocytes # (1.0-4.8) k/uL Monocytes # (0-1.0) k/uL Eosinophils # (0-0.7) k/uL Basophils # (0-0.2) k/uL Sodium (137-145) mmol/L Potassium (3.5-5.1) mmol/L Chloride (98-107) mmol/L Carbon Dioxide (22-30) mmol/L Anion Gap mmol/L BUN (7-17) mg/dL Creatinine (0.52-1.04) mg/dL Est GFR (CKD-EPI)AfAm (>60 ml/min/1.73 sqM) Est GFR (CKD-EPI)NonAf (>60 ml/min/1.73 sqM) Glucose (74-99) mg/dL Lactic Ac Sepsis Rflx Plasma Lactic Acid Gabriel 2.9 H* (0.7-2.0) mmol/L Calcium (8.4-10.2) mg/dL Phosphorus (2.5-4.5) mg/dL Magnesium (1.6-2.3) mg/dL Total Bilirubin (0.2-1.3) mg/dL AST (14-36) U/L ALT (4-34) U/L Alkaline Phosphatase (38-126) U/L Troponin I 0.050 H* (0.000-0.034) ng/mL Total Protein (6.3-8.2) g/dL Albumin (3.5-5.0) g/dL Amylase (30-110) U/L Lipase (23-300) U/L Urine Color Yellow Urine Appearance Cloudy H (Clear) Urine pH 6.0 (5.0-8.0) Ur Specific [place] 1.021 (1.001-1.035) Urine Protein 4+ H (Negative) Urine Glucose (UA) Negative (Negative) Urine Ketones Negative (Negative) Urine Blood Moderate H (Negative) Urine Nitrite Negative (Negative) Urine Bilirubin Negative (Negative) Urine Urobilinogen <2.0 (<2.0) mg/dL Ur Leukocyte Esterase Moderate H (Negative) Urine RBC 18 H (0-5) /hpf Urine WBC 94 H (0-5) /hpf Urine WBC Clumps Few H (None) /hpf Ur Squamous Epith Cells 2 (0-4) /hpf Urine Bacteria Rare H (None) /hpf Hyaline Casts 3 H (0-2) /lpf Urine Mucus Rare H (None) /hpf Urine Yeast (Budding) Few H (None) /hpf Coronavirus (PCR) (Not Detectd) 12/20/21 12/20/21 Range/Units 18:22 19:39 WBC (3.8-10.6) k/uL RBC (3.80-5.40) m/uL Hgb (11.4-16.0) gm/dL Hct (34.0-46.0) % MCV (80.0-100.0) fL MCH (25.0-35.0) pg MCHC (31.0-37.0) g/dL RDW (11.5-15.5) % Plt Count (150-450) k/uL MPV Neutrophils % % Lymphocytes % % Monocytes % % Eosinophils % % Basophils % % Neutrophils # (1.3-7.7) k/uL Lymphocytes # (1.0-4.8) k/uL Monocytes # (0-1.0) k/uL Eosinophils # (0-0.7) k/uL Basophils # (0-0.2) k/uL Sodium (137-145) mmol/L Potassium (3.5-5.1) mmol/L Chloride (98-107) mmol/L Carbon Dioxide (22-30) mmol/L Anion Gap mmol/L BUN (7-17) mg/dL Creatinine (0.52-1.04) mg/dL Est GFR (CKD-EPI)AfAm (>60 ml/min/1.73 sqM) Est GFR (CKD-EPI)NonAf (>60 ml/min/1.73 sqM) Glucose (74-99) mg/dL Lactic Ac Sepsis Rflx Y Plasma Lactic Acid Gabriel (0.7-2.0) mmol/L Calcium (8.4-10.2) mg/dL Phosphorus 1.6 L (2.5-4.5) mg/dL Magnesium 1.3 L (1.6-2.3) mg/dL Total Bilirubin (0.2-1.3) mg/dL AST (14-36) U/L ALT (4-34) U/L Alkaline Phosphatase (38-126) U/L Troponin I (0.000-0.034) ng/mL Total Protein (6.3-8.2) g/dL Albumin (3.5-5.0) g/dL Amylase (30-110) U/L Lipase (23-300) U/L Urine Color Urine Appearance (Clear) Urine pH (5.0-8.0) Ur Specific [place] (1.001-1.035) Urine Protein (Negative) Urine Glucose (UA) (Negative) Urine Ketones (Negative) Urine Blood (Negative) Urine Nitrite (Negative) Urine Bilirubin (Negative) Urine Urobilinogen (<2.0) mg/dL Ur Leukocyte Esterase (Negative) Urine RBC (0-5) /hpf Urine WBC (0-5) /hpf Urine WBC Clumps (None) /hpf Ur Squamous Epith Cells (0-4) /hpf Urine Bacteria (None) /hpf Hyaline Casts (0-2) /lpf Urine Mucus (None) /hpf Urine Yeast (Budding) (None) /hpf Coronavirus (PCR) (Not Detectd) - EKG Data EKG Comments: EKG done a 5100. The ED attending physician reveals sinus tachycardia with minimal ST depression of 0.025 mV noted in the lateral precordial leads. No evidence of ST elevation. No T-wave inversion. Normal axis. Normal QRS morphology otherwise. When co mpared to the previous study from March 2019, sinus tachycardia now present. (Orlin Khan) Critical Care Time Critical Care Time: Yes (45) <Orlin Khan - Last Filed: 12/20/21 23:34> Critical Care Time: Multiple diagnoses, reevaluation patient. Evaluation of patient's response to treatment. Evaluation diagnostic tests. Discussion with ED attending. Multiple discussions with the patient. Comp Case. (Orlin Khan) Disposition Is patient prescribed a controlled substance at d/c from ED?: No Decision to Admit Reason: Admit from EC Decision Time: 18:41 <Orlin Khan - Last Filed: 12/20/21 23:34> <Frances Lin - Last Filed: 12/26/21 07:41> Clinical Impression: Acute kidney injury, Dehydration, Hypomagnesemia, Severe sepsis, Pyelo nephritis, Elevated troponin Narrative: Elevated troponin, likely due to demand (Orlin Khan) Disposition: ADMITTED IP TO THIS HOSP Condition: Stable
--- NOTE | 2021-12-20 19:02 | XR ---
EXAMINATION TYPE: XR abdomen 3V DATE OF EXAM: 12/20/2021 CLINICAL HISTORY: Pain and nausea and vomiting TECHNIQUE: One upright and 2 supine radiographs were obtained. COMPARISON: None. FINDINGS: Scattered gas is seen in non-distended small bowel loops. Gas and fecal material is seen in non-distended colon. There is no visceromegaly, pneumoperitoneum, or abnormal calcification appr eciated. The lung bases are clear and the osseous structures are intact. IMPRESSION: No acute radiographic process.
[2021-12-20 19:23] LABS: Magnesium 1.3 mg/dL (1.6-2.3); Phosphorus 1.6 mg/dL (2.5-4.5)
[2021-12-20] MEDS: SODIUM CHLORIDE 0.9% 1,000 ML IV SCH ×2 (19:23→21:11)
[2021-12-20 19:26] LABS: Appearance,Urine Cloudy (Clear); Bacteria,Urine Rare /hpf; Bilirubin,Urine Negative (Negative); Blood,Urine Moderate (Negative); Budding Yeast,Urine Few /hpf; Color,Urine Yellow; Glucose,Urine (UA) Negative (Negative); Hyaline Casts,Urine 3 /lpf (0-2); Ketones,Urine Negative (Negative); Leukocyte Esterase,Urine Moderate (Negative); Mucus,Urine Rare /hpf; Nitrite,Urine Negative (Negative); Protein,Urine 4+ (Negative); RBC,Urine 18 /hpf (0-5); Specific Gravity,Urine 1.021 (1.001-1.035); Squamous Epithelial Cell,Urine 2 /hpf (0-4); Urobilinogen,Urine <2.0 mg/dL (<2.0); WBC,Urine 94 /hpf (0-5)
[2021-12-20] MEDS ORDERED: Magnesium Replacement Protocol 1 EACH MISC MISCELLANE PRN (19:27)
[2021-12-20] MEDS: MAGNESIUM SULFATE-D5W PMX 1 GM in DEXTROSE/WATER 1 100ML.BAG IVPB SCH ×2 (19:38→21:04)
[2021-12-20] MEDS ORDERED: VANCOMYCIN IV PER PHARMACY 1 EACH MISC MISCELLANE PRN (19:52)
[2021-12-20] MEDS ORDERED: SODIUM CHLORIDE 0.9% 1,000 ML IV ONE (19:57)
[2021-12-20] MEDS ORDERED: NALOXONE 0.4 MG/ML 1 ML VIAL IV PRN (20:20)
[2021-12-20] MEDS ORDERED: ONDANSETRON 4 MG/2 ML VIAL IVP PRN (20:20)
[2021-12-20] MEDS ORDERED: VANCOMYCIN 1,500 MG in SODIUM CHLORIDE 0.9% 250 ML IVPB ONE (20:30)
[2021-12-20] MEDS: ASPIRIN 325 MG TAB PO SCH (21:04)
[2021-12-20] MEDS: METOPROLOL TARTRATE 50 MG TAB PO SCH (21:04)
[2021-12-20] MEDS: PANTOPRAZOLE 40 MG/10 ML VIAL IVP SCH (21:05)
--- NOTE | 2021-12-20 21:16 | XR ---
EXAMINATION: XR chest 2V DATE AND TIME: 12/20/2021 7:34 PM CLINICAL INDICATION: PHH; Cough TECHNIQUE: AP and lateral COMPARISON: None FINDINGS: The lungs are clear. The pleural spaces are negative. The cardiac silhouette is not enlarged. The remainder of the mediastinal silhouette is unremarkable. The skeletal structures and soft tissues are negative for acute findings. IMPRESSION: NO ACUTE PROCESS.
--- NOTE | 2021-12-20 21:55 | CT ---
EXAMINATION TYPE: CT abdomen pelvis wo con DATE OF EXAM: 12/20/2021 HISTORY: Fever. Elevated WBC. Sepsis. CT DLP: 551.3 mGycm. Automated Exposure Control for Dose Reduction was Utilized. TECHNIQUE: CT scan of the abdomen and pelvis is performed without oral or IV contrast. COMPARISON: None available. FINDINGS: Within the limitations of a non-contrast study, the following observations are made. LUNG BASES: No significant abnormality is appreciated. LIVER/GB: No significant abnormality is appreciated. PANCREAS: No significant abnormality is seen. SPLEEN: No significant abnormality is seen. ADRENALS: No significant abnormality is seen. KIDNEYS, URETERS, BLADDER: Bilateral qaw[place]angin kidneys are atrophic and unremarkable. The right transpla nt kidney measures 7.7 x 6.5 x 6.0 cm. There is no jessie hydronephrosis, but the upper collecting sys tem is mildly prominent. There is a subtle perinephric reticulation pattern circumferential to the tr ansplant kidney, which is a nonspecific finding, with no perinephric fluid or gas collections. No tra nsplant kidney calcifications. The transplant ureter is not dilated. The urinary bladder is unremarka ble. PERITONEAL CAVITY: No peritoneal fluid or pneumoperitoneum. EXTRAPERITONEAL SPACES: No adenopathy. No fluid or gas collections. BOWEL: No obstruction. Colonic stool volume is unremarkable. GENITAL ORGANS: No gross abnormality seen. OSSEOUS STRUCTURES: No focal findings. IMPRESSION: No definite acute radiographic process.
[2021-12-21] MEDS: ACETAMINOPHEN TAB 325 MG TAB PO PRN ×2 (03:50→12:22)
[2021-12-21] MEDS: SODIUM CHLORIDE 0.9% 1,000 ML IV SCH ×6 (04:56→23:54)
[2021-12-21 05:55] LABS: Basophils % (A) 0 %; Eosinophils % (A) 0 %; HCT 36.1 % (34.0-46.0); HGB 11.5 gm/dL (11.4-16.0); Lymphocytes # (A) 0.5 k/uL (1.0-4.8); Lymphocytes % (A) 5 %; MCH 29.3 pg (25.0-35.0); MCHC 31.9 g/dL (31.0-37.0); MCV 91.9 fL (80.0-100.0); Mean Platelet Volume 7.3; Monocytes # (A) 0.4 k/uL (0-1.0); Monocytes % (A) 4 %; Neutrophils # (A) 9.9 k/uL (1.3-7.7); Neutrophils % (A) 90 %; Platelet Count 142 k/uL (150-450); RBC 3.93 m/uL (3.80-5.40); RDW 13.1 % (11.5-15.5)
[2021-12-21 05:58] LABS: Albumin 3.1 g/dL (3.5-5.0); Calcium 8.1 mg/dL (8.4-10.2); Potassium 3.8 mmol/L (3.5-5.1); Total Bilirubin 0.6 mg/dL (0.2-1.3); Total Protein 5.2 g/dL (6.3-8.2)
[2021-12-21] MEDS: metroNIDAZOLE-NS PMX 500 MG in SALINE 1 100ML.BAG IVPB SCH ×2 (08:51→16:26)
[2021-12-21] MEDS: PANTOPRAZOLE 40 MG/10 ML VIAL IVP SCH ×2 (08:52→22:33)
[2021-12-21] MEDS: METOPROLOL TARTRATE 50 MG TAB PO SCH ×2 (08:52→22:33)
[2021-12-21] MEDS: ASPIRIN 325 MG TAB PO SCH ×2 (08:52→22:33)
[2021-12-21] MEDS: ENOXAPARIN 30 MG/0.3 ML SYRINGE SQ SCH (08:53)
[2021-12-21] MEDS: predniSONE 10 MG TAB PO SCH (10:27)
[2021-12-21] MEDS ORDERED: HYDROCORTISONE SUCCINATE 100 MG/2 ML VIAL IV STA ×2 (11:07→12:23)
--- NOTE | 2021-12-21 11:07 | P.NPCON ---
History of Present Illness - Reason for Consult acute renal failure - History of Present Illness Patient is a 51-year-old female with history of end-stage renal disease status post donor transplant in 2016 with baseline creatinine about 1.2 mg/dL. Patient is maintained on CellCept, envarsus and prednisone. Patient is admitted to the hospital with complaints of increased weakness. She started off with a headache and felt it was due to a migraine headache. Patient denied any abdominal pain. She did have some nausea. No diarrhea. No urinary symptoms. UA is suggestive of UTI. Patient was significantly hypotensive with systolic blood pressure in the 90s. She has received IV fluid boluses and has been started on antibiotics. Overall she states she is feeling better. Serum creatinine was 2.2 yesterday and it is at 2.3 for today. Ultrasound of the transplant kidney did not show any hydronephrosis. Patient is voiding fairly well. No complaints of fever. Patient did have some cough which she feels is due to her ALLERGIES. Review of Systems As per HPI other systems negative Past Medical History Past Medical History: Cancer, Dialysis, GERD/Reflux, Hypertension, Renal Disease Additional Past Medical History / Comment(s): migraines, - hemodialysis TUE,RACHEL,SAT, end stage renal failure, pt has kidney transplant 2016 hx heart murmer, anemia, hx breast cancer History of Any Multi-Drug Resistant Organisms: None Reported Past Surgical History: Section, Hysterectomy, Tonsillectomy Additional Past Surgical History / Comment(s): peritoneal dialysis catheter insertion/removal, hemodialysis fistula-rt arm, kidney transplant Past Anesthesia/Blood Transfusion Reactions: Previous Problems w/ Anesthesia, Postoperative Nausea & Vomiting (PONV) Additional Past Anesthesia/Blood Transfusion Reaction / Comment(s): sometimes causes High BP Past Psychological History: Depression Smoking Status: Never smoker Past Alcohol Use History: None Reported Additional Past Alcohol Use History / Comment(s): quit smoking 1988 Past Drug Use History: None Reported - Past Family History Sister(s) Family Medical History: Cancer Additional Family Medical History / Comment(s): melanoma Mother Family Medical History: Cancer Additional Family Medical History / Comment(s): lung cancer Medications and Allergies Home Medications Medication Instructions Recorded Confirmed Type Metoprolol Tartrate 50 mg PO BID 09/07/16 12/20/21 History Tacrolimus [Envarsus Xr] 2 mg PO DAILY 03/27/19 12/20/21 History Acetaminophen [Tylenol Extra 1,000 mg PO Q6H PRN 12/20/21 12/20/21 History Strength] mycophenolate mofetiL [Cellcept] 500 mg PO BID 12/20/21 12/20/21 History predniSONE 5 mg PO DAILY 12/20/21 12/20/21 History Allergies Allergy/AdvReac Type Severity Reaction Status Date / Time baclofen Allergy "could not Verified 12/20/21 20:33 function" codeine Allergy Vomiting Verified 12/20/21 20:33 sertraline HCl [From Zoloft] Allergy Rash/Hives Verified 12/20/21 20:33 Physical Exam Vitals: Vital Signs Temp Pulse Pulse Resp BP BP Pulse Ox 12/21/21 08:40 99.2 F 96 18 98/58 98 12/21/21 06:00 98.3 F 99 20 104/54 99 12/21/21 02:00 90 16 103/64 98 12/20/21 23:11 98.8 F 96 16 95/51 98 12/20/21 21:52 98.8 F 96 18 12/20/21 20:43 100 F H 122 H 16 108/52 98 12/20/21 19:20 131 H 18 112/57 96 12/20/21 16:48 102.3 F H 155 H 18 126/80 98 Intake and Output 12/20/21 12/21/21 12/21/21 22:59 06:59 14:59 Other: Weight 77.111 kg 77.111 kg Awake, comfortable, not in any acute distress Examination of the heart S1 and S2 Examination of the lungs bilateral breath sounds are heard Abdomen is soft nontender, right renal allograft nontender Examination of the lower extremities shows no evidence of edema BUTT TRIMMER exam grossly intact Results - Lab Results Most recent lab results Calcium 8.1 mg/dL (8.4-10.2) L 12/21/21 05:20 Phosphorus 3.0 mg/dL (2.5-4.5) 12/21/21 05:20 Magnesium 2.0 mg/dL (1.6-2.3) 12/21/21 05:20 12/21/21 05:20 12/21/21 05:20 Assessment and Plan Assessment: 1. Acute kidney injury secondary to hypotension and sepsis. Nonoliguric 2. UTI currently maintained on ceftriaxone. Urine cultures pending 3. Hypotension from underlying infection, sepsis in a patient maintained on prednisone. Patient will be given stress dose steroids 4. Status post donor renal transplant in 2015 maintained on tacrolimus, CellCept and 5 mg of prednisone. Baseline creatinine about 1.2 mg/dL as of 05/28/2021 5. History of migraine headaches Plan: Continue IV fluids Follow-up on urine cultures Prednisone 30 mg today and tomorrow and then resume 5 mg daily subsequently May resume home dose of tacrolimus and CellCept unless patient remains significantly hypotensive or worsens from sepsis standpoint. Thank you for the consultation. We'll continue to follow the patient with you during her hospitalization
--- NOTE | 2021-12-21 11:54 | P.HPIM ---
History of Present Illness H&P Date: 12/21/21 Chief Complaint: Headache 51-year-old woman with a medical history of end-stage renal disease status post donor kidney transplant in 2016 with CK D stage III of the transplant, hypertension, history of breast cancer, recurrent migraines presented with headache, nausea, vomiting. Patient says that this is typical of her migraine symptoms and they usually go away within 24 hours, however, this time the symptoms persisted for 3 days prior to her arrival to the emergency room. In addition, she experienced some bouts of diarrhea. She had not been eating well for the past 3 days due to these issues. She presented to the hospital for further evaluation at the request her after symptoms were not abating. She reports headache, nausea, vomiting, fever, chills, dysuria. She denies chest pain, palpitations, syncope, presyncope, abdominal pain, constipation, dyschezia, numbness/weakness of extremities. In the emergency room, upon my evaluation, patient is noted to be afebrile, 98/58, heart rate 96, 98% on room air. She has a leukocytosis to 11.0, platelets of 142. Chemistries show sodium of 134, BUN of 30, creatinine of 2.34 with a baseline creatinine of 1.2. Liver function tests show low protein and low albumin of 5.2, 3.1. Urinalysis was consistent with the urinary tract infection with 4+ protein, moderate blood, moderate leukocyte esterase, 18 red blood cells, 94 white blood cells, rare bacteria and 3 hyaline casts. Blood culture Gram stain returned positive for gram-negative bacteria. abdominal x- ray was negative for acute radiographic process. Chest x-ray was negative for an acute process. CT Abdomen pelvis was negative for acute process. All Systems reviewed and pertinent positives and negatives noted in HPI, all other symptoms are negative Gen: in no apparent distress, resting comfortably in bed Eyes: PERRL, no scleral injection or icterus HENT: normocephalic, atraumatic, good hearing acuity, moist mucous membranes Neck: no tracheal deviation, full range of motion Resp: good air exchange, breathing comfortably with no accessory muscle use, no tactile fremitus CVS: good distal perfusion x 4, no pitting edema GI: soft, NTTP, ND, no hepatosplenomegaly : no suprapubic tenderness, no CVAT, alvarez catheter not present MSK: no clubbing, no cyanosis, no noted contractures of extremities Skin: no noted rashes, petechiae; temperature of skin is appropriate Neuro: moving all extremities without signs of weakness, CN II-XII intact Psych: cooperative, euthymic mood, insight and judgment intact Assessment/plan: Sepsis with Pyelonephritis of kidney transplant Gram-negative bacteremia Acute kidney injury superimposed on chronic kidney disease -Admit to inpatient, telemetry -Follow up urine culture, blood culture -Ceftriaxone, can discontinue Flagyl -IV fluids -Nephrology consult Hypertension Migraines History of breast cancer -Home medications reviewed and reconciled Patient is full code DVT prophylaxis with heparin 3 times a day Past Medical History Past Medical History: Cancer, Dialysis, GERD/Reflux, Hypertension, Renal Disease Additional Past Medical History / Comment(s): migraines, - hemodialysis TUE,RACHEL,SAT, end stage renal failure, pt has kidney transplant 2015 hx heart murmer, anemia, hx breast cancer History of Any Multi-Drug Resistant Organisms: None Reported Past Surgical History: Section, Hysterectomy, Tonsillectomy Additional Past Surgical History / Comment(s): peritoneal dialysis catheter insertion/removal, hemodialysis fistula-rt arm, kidney transplant Past Anesthesia/Blood Transfusion Reactions: Previous Problems w/ Anesthesia, Postoperative Nausea & Vomiting (PONV) Additional Past Anesthesia/Blood Transfusion Reaction / Comment(s): sometimes causes High BP Past Psychological History: Depression Smoking Status: Never smoker Past Alcohol Use History: None Reported Additional Past Alcohol Use History / Comment(s): quit smoking 1988 Past Drug Use History: None Reported - Past Family History Sister(s) Family Medical History: Cancer Additional Family Medical History / Comment(s): melanoma Mother Family Medical History: Cancer Additional Family Medical History / Comment(s): lung cancer Medications and Allergies Home Medications Medication Instructions Recorded Confirmed Type RX: Metoprolol Tartrate 50 mg PO BID 09/07/16 12/20/21 History RX: Tacrolimus [Envarsus Xr] 2 mg PO DAILY 03/27/19 12/20/21 History Acetaminophen [Tylenol Extra 1,000 mg PO Q6H PRN 12/20/21 12/20/21 History Strength] RX: predniSONE 5 mg PO DAILY 12/20/21 12/20/21 History mycophenolate mofetiL [Cellcept] 500 mg PO BID 12/20/21 12/20/21 History Allergies Allergy/AdvReac Type Severity Reaction Status Date / Time baclofen Allergy "could not Verified 12/20/21 20:33 function" codeine Allergy Vomiting Verified 12/20/21 20:33 sertraline HCl [From Zoloft] Allergy Rash/Hives Verified 12/20/21 20:33 Physical Exam Osteopathic Statement: *. No significant issues noted on an osteopathic structural exam other than those noted in the History and Physical/Consult. Vitals: Vital Signs Temp Pulse Pulse Resp BP BP Pulse Ox 12/21/21 08:40 99.2 F 96 18 98/58 98 12/21/21 06:00 98.3 F 99 20 104/54 99 12/21/21 02:00 90 16 103/64 98 12/20/21 23:11 98.8 F 96 16 95/51 98 12/20/21 21:52 98.8 F 96 18 12/20/21 20:43 100 F H 122 H 16 108/52 98 12/20/21 19:20 131 H 18 112/57 96 12/20/21 16:48 102.3 F H 155 H 18 126/80 98 Intake and Output 12/20/21 12/21/21 12/21/21 22:59 06:59 14:59 Other: Weight 77.111 kg 77.111 kg Results CBC & Chem 7: 12/21/21 05:20 12/21/21 05:20 Labs: Abnormal Lab Results - Last 24 Hours (Table) 12/20/21 12/20/21 12/20/21 Range/Units 17:31 17:31 18:22 WBC 15.6 H (3.8-10.6) k/uL Plt Count (150-450) k/uL Neutrophils # 14.5 H (1.3-7.7) k/uL Lymphocytes # 0.5 L (1.0-4.8) k/uL Sodium 131 L (137-145) mmol/L Chloride 95 L (98-107) mmol/L Carbon Dioxide 19 L (22-30) mmol/L BUN 30 H (7-17) mg/dL Creatinine 2.28 H (0.52-1.04) mg/dL Glucose 221 H (74-99) mg/dL Plasma Lactic Acid Gabriel (0.7-2.0) mmol/L Calcium (8.4-10.2) mg/dL Phosphorus (2.5-4.5) mg/dL Magnesium (1.6-2.3) mg/dL Troponin I (0.000-0.034) ng/mL Total Protein (6.3-8.2) g/dL Albumin (3.5-5.0) g/dL Urine Appearance Cloudy H (Clear) Urine Protein 4+ H (Negative) Urine Blood Moderate H (Negative) Ur Leukocyte Esterase Moderate H (Negative) Urine RBC 18 H (0-5) /hpf Urine WBC 94 H (0-5) /hpf Urine WBC Clumps Few H (None) /hpf Urine Bacteria Rare H (None) /hpf Hyaline Casts 3 H (0-2) /lpf Urine Mucus Rare H (None) /hpf Urine Yeast (Budding) Few H (None) /hpf 12/20/21 12/20/21 12/20/21 Range/Units 18:22 18:22 18:22 WBC (3.8-10.6) k/uL Plt Count (150-450) k/uL Neutrophils # (1.3-7.7) k/uL Lymphocytes # (1.0-4.8) k/uL Sodium (137-145) mmol/L Chloride (98-107) mmol/L Carbon Dioxide (22-30) mmol/L BUN (7-17) mg/dL Creatinine (0.52-1.04) mg/dL Glucose (74-99) mg/dL Plasma Lactic Acid Gabriel 2.9 H* (0.7-2.0) mmol/L Calcium (8.4-10.2) mg/dL Phosphorus 1.6 L (2.5-4.5) mg/dL Magnesium 1.3 L (1.6-2.3) mg/dL Troponin I 0.050 H* (0.000-0.034) ng/mL Total Protein (6.3-8.2) g/dL Albumin (3.5-5.0) g/dL Urine Appearance (Clear) Urine Protein (Negative) Urine Blood (Negative) Ur Leukocyte Esterase (Negative) Urine RBC (0-5) /hpf Urine WBC (0-5) /hpf Urine WBC Clumps (None) /hpf Urine Bacteria (None) /hpf Hyaline Casts (0-2) /lpf Urine Mucus (None) /hpf Urine Yeast (Budding) (None) /hpf 12/20/21 12/21/21 12/21/21 Range/Units 21:19 00:00 05:20 WBC (3.8-10.6) k/uL Plt Count (150-450) k/uL Neutrophils # (1.3-7.7) k/uL Lymphocytes # (1.0-4.8) k/uL Sodium 134 L (137-145) mmol/L Chloride (98-107) mmol/L Carbon Dioxide (22-30) mmol/L BUN 30 H (7-17) mg/dL Creatinine 2.34 H (0.52-1.04) mg/dL Glucose 141 H (74-99) mg/dL Plasma Lactic Acid Gabriel (0.7-2.0) mmol/L Calcium 8.1 L (8.4-10.2) mg/dL Phosphorus (2.5-4.5) mg/dL Magnesium (1.6-2.3) mg/dL Troponin I 0.085 H* 0.090 H* (0.000-0.034) ng/mL Total Protein 5.2 L (6.3-8.2) g/dL Albumin 3.1 L (3.5-5.0) g/dL Urine Appearance (Clear) Urine Protein (Negative) Urine Blood (Negative) Ur Leukocyte Esterase (Negative) Urine RBC (0-5) /hpf Urine WBC (0-5) /hpf Urine WBC Clumps (None) /hpf Urine Bacteria (None) /hpf Hyaline Casts (0-2) /lpf Urine Mucus (None) /hpf Urine Yeast (Budding) (None) /hpf 12/21/21 Range/Units 05:20 WBC 11.0 H (3.8-10.6) k/uL Plt Count 142 L (150-450) k/uL Neutrophils # 9.9 H (1.3-7.7) k/uL Lymphocytes # 0.5 L (1.0-4.8) k/uL Sodium (137-145) mmol/L Chloride (98-107) mmol/L Carbon Dioxide (22-30) mmol/L BUN (7-17) mg/dL Creatinine (0.52-1.04) mg/dL Glucose (74-99) mg/dL Plasma Lactic Acid Gabriel (0.7-2.0) mmol/L Calcium (8.4-10.2) mg/dL Phosphorus (2.5-4.5) mg/dL Magnesium (1.6-2.3) mg/dL Troponin I (0.000-0.034) ng/mL Total Protein (6.3-8.2) g/dL Albumin (3.5-5.0) g/dL Urine Appearance (Clear) Urine Protein (Negative) Urine Blood (Negative) Ur Leukocyte Esterase (Negative) Urine RBC (0-5) /hpf Urine WBC (0-5) /hpf Urine WBC Clumps (None) /hpf Urine Bacteria (None) /hpf Hyaline Casts (0-2) /lpf Urine Mucus (None) /hpf Urine Yeast (Budding) (None) /hpf Microbiology - Last 24 Hours (Table) 12/20/21 18:41 Blood Culture Gram Stain - Preliminary Blood 12/20/21 18:22 Urine Culture - Preliminary Urine,Clean Catch 12/20/21 18:41 Blood Culture - Final Blood Thrombosis Risk Factor Assmnt - Choose All That Apply Any of the Below Risk Factors Present?: Yes Each Factor Represents 1 point: Age 41-60 years Thrombosis Risk Factor Assessment Total Risk Factor Score: 1 Thrombosis Risk Factor Assessment Level: Low Risk
--- NOTE | 2021-12-21 12:34 | P.CRDCN ---
History of Present Illness Consult date: 12/21/21 History of present illness: Patient has a known history of hypertension, chronic renal failure status post kidney transplant 2016. She is seen Dr. Martinez in the office. We have been consulted for elevated troponins. Trocar flatted 0.85, 0.90. Patient initially came in with headache nausea vomiting and diarrhea. She has not had any episodes of chest pain, palpitations, increased shortness of breath, dizziness, syncope, or edema. Initial EKG showed sinus tachycardia, on repeat it shows sinus rhythm. Her BUN is 30 creatinine is 2.34. Chest x-ray is negative for acute cardiopulmonary process. Abdominal pelvic CT is negative for acute process. Patient had a Car diolite stress test in 2013 which showed normal myocardial perfusion. She had an echocardiogram at that same time and showed a normal LV function without valvular disease. Patient examined today ER resting comfortably. She continues to deny any chest pain or increased shortness breath. She is not in acute distress. ACS is been ruled out, EKG shows no evidence of ischemic changes. Elevated troponins are secondary to chronic kidney disease. Patient is on aspirin and Lopressor, continue. Will obtain an echocardiogram. If patient has a normal left ventricular function without abnormal wall motion. Patient is cleared to be discharged from a cardiac standpoint and follow-up outpatient with Dr. Martinez for outpatient stress test Review of Systems REVIEW OF SYSTEMS At the time of my exam: CONSTITUTIONAL: Denies fever or chills. EYES: Negative for vision changes ENT: Negative for hearing loss CARDIOVASCULAR: Denies chest pain, shortness of breath, diaphoresis, orthopnea, PND or palpitations. VASCULAR: Denies edema RESPIRATORY: Denies cough. GASTROINTESTINAL: Denies abdominal pain, diarrhea, constipation, nausea or vomiting. MUSCULOSKELETAL: Denies myalgias. NEUROLOGIC: Denies numbness, tingling, headache or weakness. ENDOCRINE: Denies fatigue, weight change, polydipsia or polyurina. GENITOURINARY: Denies burning, hematuria or urgency with micturation. HEMATOLOGIC: Denies history of anemia or bleeding. DERMATOLOGY: Denies rash or skin sores PSYCH: Negative for depression or hallucinations. Past Medical History Past Medical History: Cancer, Dialysis, GERD/Reflux, Hypertension, Renal Disease Additional Past Medical History / Comment(s): migraines, - hemodialysis TUE,RACHEL,SAT, end stage renal failure, pt has kidney transplant 2016 hx heart murmer, anemia, hx breast cancer History of Any Multi-Drug Resistant Organisms: None Reported Past Surgical History: Section, Hysterectomy, Tonsillectomy Additional Past Surgical History / Comment(s): peritoneal dialysis catheter insertion/removal, hemodialysis fistula-rt arm, kidney transplant Past Anesthesia/Blood Transfusion Reactions: Previous Problems w/ Anesthesia, Postoperative Nausea & Vomiting (PONV) Additional Past Anesthesia/Blood Transfusion Reaction / Comment(s): sometimes causes High BP Past Psychological History: Depression Smoking Status: Never smoker Past Alcohol Use History: None Reported Additional Past Alcohol Use History / Comment(s): quit smoking 1988 Past Drug Use History: None Reported - Past Family History Sister(s) Family Medical History: Cancer Additional Family Medical History / Comment(s): melanoma Mother Family Medical History: Cancer Additional Family Medical History / Comment(s): lung cancer Medications and Allergies Home Medications Medication Instructions Recorded Confirmed Type Metoprolol Tartrate 50 mg PO BID 09/07/16 12/20/21 History Tacrolimus [Envarsus Xr] 2 mg PO DAILY 03/27/19 12/20/21 History Acetaminophen [Tylenol Extra 1,000 mg PO Q6H PRN 12/20/21 12/20/21 History Strength] mycophenolate mofetiL [Cellcept] 500 mg PO BID 12/20/21 12/20/21 History predniSONE 5 mg PO DAILY 12/20/21 12/20/21 History Allergies Allergy/AdvReac Type Severity Reaction Status Date / Time baclofen Allergy "could not Verified 12/20/21 20:33 function" codeine Allergy Vomiting Verified 12/20/21 20:33 sertraline HCl [From Zoloft] Allergy Rash/Hives Verified 12/20/21 20:33 Physical Exam Vitals: Vital Signs Temp Pulse Pulse Resp BP BP Pulse Ox 12/21/21 12:11 86 18 108/67 97 12/21/21 11:46 96 18 12/21/21 08:40 99.2 F 96 18 98/58 98 12/21/21 06:00 98.3 F 99 20 104/54 99 12/21/21 02:00 90 16 103/64 98 12/20/21 23:11 98.8 F 96 16 95/51 98 12/20/21 21:52 98.8 F 96 18 12/20/21 20:43 100 F H 122 H 16 108/52 98 12/20/21 19:20 131 H 18 112/57 96 12/20/21 16:48 102.3 F H 155 H 18 126/80 98 Intake and Output 12/20/21 12/21/21 12/21/21 22:59 06:59 14:59 Other: Weight 77.111 kg 77.111 kg PHYSICAL EXAMINATION VITAL SIGNS: Reviewed General: The patient is awake and alert, in no distress, and does not appear acutely ill. Skin: Skin is warm and dry and no rashes or lesions are noted. Eye: Pupils are equal, round and reactive to light, extra-ocular movements are intact; there is normal conjunctiva bilaterally. Ears, nose, mouth and throat: There are moist mucous membranes and no oral lesions. Neck: The neck is supple, there is no tenderness or JVD. Cardiovascular: There is irregular regular rate and rhythm. No murmur, rub or gallop is appreciated. Respiratory: Lungs are clear to auscultation, respirations are non-labored, breath sounds are equal. Gastrointestinal: Soft, non-distended, non-tender abdomen without masses or organomegaly noted. There is no rebound or guarding present. Bowel sounds are unremarkable. Back: There is no tenderness to palpation in the midline. There is no obvious deformity. Musculoskeletal: Normal ROM, no tenderness, There is no pedal edema. There is no calf tenderness or swelling. Extremities: Mild bilateral pitting edema Vascular: Femoral pulse is normal. Posterior tibial pulses are normal .Dorsalis pedis is palpable. Neurological: CN II-XII intact. There are no obvious motor or sensory deficits. Speech is normal. Psychiatric: Cooperative, appropriate mood & affect, normal judgment Results 12/21/21 05:20 12/21/21 05:20 Cardiac Enzymes 12/20/21 12/20/21 12/20/21 Range/Units 17:31 18:22 21:19 AST 33 (14-36) U/L Troponin I 0.050 H* 0.085 H* (0.000-0.034) ng/mL 12/21/21 12/21/21 Range/Units 00:00 05:20 AST 28 (14-36) U/L Troponin I 0.090 H* (0.000-0.034) ng/mL CBC 12/20/21 12/21/21 Range/Units 17:31 05:20 WBC 15.6 H 11.0 H (3.8-10.6) k/uL RBC 4.73 3.93 (3.80-5.40) m/uL Hgb 14.2 11.5 (11.4-16.0) gm/dL Hct 42.4 36.1 (34.0-46.0) % Plt Count 207 142 L (150-450) k/uL Comprehensive Metabolic Panel 12/20/21 12/21/21 Range/Units 17:31 05:20 Sodium 131 L 134 L (137-145) mmol/L Potassium 3.9 3.8 (3.5-5.1) mmol/L Chloride 95 L 101 (98-107) mmol/L Carbon Dioxide 19 L 23 (22-30) mmol/L BUN 30 H 30 H (7-17) mg/dL Creatinine 2.28 H 2.34 H (0.52-1.04) mg/dL Glucose 221 H 141 H (74-99) mg/dL Calcium 9.8 8.1 L (8.4-10.2) mg/dL AST 33 28 (14-36) U/L ALT 27 21 (4-34) U/L Alkaline Phosphatase 98 73 (38-126) U/L Total Protein 7.0 5.2 L (6.3-8.2) g/dL Albumin 4.4 3.1 L (3.5-5.0) g/dL Current Medications Generic Name Dose Route Start Last Admin Trade Name Freq PRN Reason Stop Dose Admin Acetaminophen 650 mg 12/20/21 20:20 12/21/21 12:22 Acetaminophen Tab 325 Mg Tab PO 650 mg Q6HR PRN Administration Mild Pain or Fever > 100.5 Aspirin 325 mg 12/20/21 20:30 12/21/21 08:52 Aspirin 325 Mg Tab PO 325 mg DAILY LAURY Administration Enoxaparin Sodium 30 mg 12/21/21 09:00 12/21/21 08:53 Enoxaparin 30 Mg/0.3 Ml Syringe SQ 30 mg DAILY LAURY Administration Sodium Chloride 1,000 mls @ 130 mls/hr 12/20/21 18:15 12/21/21 09:05 Saline 0.9% IV Not Given .Q7H42M LAURY Sodium Chloride 1,000 mls @ 130 mls/hr 12/20/21 20:30 12/21/21 12:24 Saline 0.9% IV Not Given .Q7H42M LA[facility]Y Ceftriaxone Sodium 1 gm/ 50 mls @ 100 mls/hr 12/21/21 21:00 Sodium Chloride IVPB HS LUARY Protocol Metronidazole 500 mg/ IV 100 mls @ 100 mls/hr 12/21/21 08:00 12/21/21 08:51 Solution IVPB 100 mls/hr Q8HR LAURY Administration Protocol Metoprolol Tartrate 50 mg 12/20/21 21:00 12/21/21 08:52 Metoprolol Tartrate 50 Mg Tab PO 50 mg BID LAURY Administration Miscellaneous Information 1 each 12/20/21 19:27 Magnesium Replacement Protocol 1 Each Misc MISCELLANE DAILY PRN Per Protocol Protocol Mycophenolate Mofetil 500 mg 12/20/21 21:30 12/21/21 08:52 Mycophenolate Mofetil 500 Mg Tab PO 500 mg BID LAURY Administration Naloxone HCl 0.2 mg 12/20/21 20:20 Naloxone 0.4 Mg/Ml 1 Ml Vial IV Q2M PRN Opioid Reversal Tacrolimus [Envarsus 2 mg 12/21/21 10:00 12/21/21 10:45 Xr] 1 Mg Tab.Er.24h PO 2 mg DAILY LAURY Administration Ondansetron HCl 4 mg 12/20/21 20:20 Ondansetron 4 Mg/2 Ml Vial IVP Q8HR PRN Nausea And Vomiting Pantoprazole Sodium 40 mg 12/20/21 20:30 12/21/21 08:52 Pantoprazole 40 Mg/10 Ml Vial IVP 40 mg DAILY LAURY Administration Prednisone 5 mg 12/23/21 09:00 Prednisone 5 Mg Tab PO DAILY LAURY Prednisone 30 mg 12/21/21 10:00 12/21/21 10:27 Prednisone 10 Mg Tab PO 12/22/21 10:00 30 mg DAILY LAURY Administration Intake and Output 12/20/21 12/21/21 12/21/21 22:59 06:59 14:59 Other: Weight 77.111 kg 77.111 kg Patient Weight 12/22/21 06:59 Weight 77.111 kg 12/21/21 05:20 12/21/21 05:20 Assessment and Plan Assessment: Acute coronary artery syndrome ruled out EKG no evidence of ischemic changes, patient asymptomatic Elevated troponin secondary to chronic kidney disease Chronic kidney disease status post kidney transplant Plan: Obtain and review echocardiogram Continue with current cardiac medications Echocardiogram comes back within normal limits patient may be discharged and follow-up outpatient for stress test Further recommendations based on clinical course The above impression and plan of care have been discussed and directed by the signing physician. Dee Hicks, nurse practitioner, acting as scribe for signing physician.
--- NOTE | 2021-12-21 20:02 | CA ---
Transthoracic Echo Report Name: Sindhu Shultz Age: 51 Gender: F : 1970 Exam Date: 12/21/2021 11:32 Exam Location: [facility] Ht (in): 63 Wt (lb): 170 Ordering Physician: Dee Hicks Attending/Referring Phys: [employer] Driver Erika Anne RDCS Procedure CPT: Indications: postive trop Cardiac Hx: Technical Quality: Fair Contrast 1: Total Dose (mL): Contrast 2: Total Dose (mL): MEASUREMENTS (Male / Female) Normal Values 2D ECHO LV Diastolic Diameter PLAX 3.0 cm 4.2 - 5.9 / 3.9 - 5.3 cm LV Systolic Diameter PLAX 2.1 cm IVS Diastolic Thickness 1.3 cm 0.6 - 1.0 / 0.6 - 0.9 cm LVPW Diastolic Thickness 1.3 cm 0.6 - 1.0 / 0.6 - 0.9 cm LV Relative Wall Thickness 0.9 RV Internal Dim ED PLAX 3.0 cm LA Systolic Diameter LX 3.2 cm 3.0 - 4.0 / 2.7 - 3.8 cm LA Volume 35.8 cm??? 18 - 58 / 22 - 52 cm??? M-MODE Aortic Root Diameter MM 2.5 cm MV E Point Septal Separation 0.7 cm AV Cusp Separation MM 1.9 cm DOPPLER AV Peak Velocity 180.9 cm/s AV Peak Gradient 13.1 mmHg MV Area PHT 3.4 cm??? Mitral E Point Velocity 153.2 cm/s Mitral A Point Velocity 122.5 cm/s Mitral E to A Ratio 1.3 MV Deceleration Time 220.8 ms MV E' Velocity 8.5 cm/s Mitral E to MV E' Ratio 17.9 TR Peak Velocity 238.4 cm/s TR Peak Gradient 22.7 mmHg Right Ventricular Systolic Press 27.1 mmHg FINDINGS Left Ventricle Left ventricular ejection fraction is estimated at 55-60 %. Left ventricular cavity size normal. Mild concentric left ventricular hypertrophy. Right Ventricle Normal right ventricular size and function. Right ventricular systolic pressure within normal limits. Right Atrium Normal right atrial size. Left Atrium Normal left atrial size. No evidence for an atrial septal defect. Mitral Valve Mitral annular calcification. Trace mitral regurgitation. Aortic Valve Trileaflet aortic valve. No aortic valve stenosis or regurgitation. Tricuspid Valve Structurally normal tricuspid valve. Pulmonic Valve Trace pulmonic regurgitation. Pericardium Normal pericardium. No pericardial effusion. Aorta Normal size aortic root and proximal ascending aorta. CONCLUSIONS Normal LV size and systolic function. There is mild concentric LVH. Mild mitral and tricuspid insufficiency. No pericardial effusion Previewed by: Dr. Carlyn Valadez MD (Electronically Signed) Final Date: 21 December 2021 20:01
[2021-12-22] MEDS: SODIUM CHLORIDE 0.9% 1,000 ML IV SCH ×5 (03:32→16:01)
[2021-12-22] MEDS: ENOXAPARIN 30 MG/0.3 ML SYRINGE SQ SCH (08:48)
[2021-12-22] MEDS: METOPROLOL TARTRATE 50 MG TAB PO SCH ×2 (08:51→20:09)
[2021-12-22] MEDS: predniSONE 10 MG TAB PO SCH (08:58)
--- NOTE | 2021-12-22 10:26 | P.PN ---
Subjective Progress Note Date: 12/22/21 Principal diagnosis: This is a 51-year-old female with status post disease donor transplant in 2016 came in with generalized weakness. She has acute kidney injury likely from the bacteremia. Workup has shown bacteremia, E. coli is growing in the blood cultures urine culture is still pending though urinalysis does have 94 wbc's but she was totally asymptomatic and denying any dysuria frequency suprapubic discomfort. Currently she is feeling very well walking around has no complaints at all. No dysuria frequency diarrhea and nausea vomiting appetite is good no dizziness no chest pain fever chills. Vital signs are stable. Objective - Vital Signs Vital signs: Vital Signs Temp 97.8 F 12/22/21 08:45 Pulse 92 12/22/21 08:45 Resp 18 12/22/21 08:45 BP 134/82 12/22/21 08:45 Pulse Ox 100 12/22/21 08:45 FiO2 Intake & Output 12/21/21 12/22/21 12/22/21 18:59 06:59 18:59 Intake Total 1977 240 Balance 1977 240 Weight 77.111 kg Intake: Intake, IV Titration 1140 Amount Sodium Chloride 0.9% 1, 1040 000 ml @ 130 mls/hr IV . Q7H42M [facility] Rx#:[id number] metroNIDAZOLE-NS PMX 500 100 mg In Saline 1 100ml.bag @ 100 mls/hr IVPB Q8HR [facility] Rx#:[id number] Oral 838 240 Awake alert oriented walking around. HEENT exam no JVP neck is supple no facial asymmetry Lungs clear to auscultation good air entry bilaterally Heart sounds unremarkable for any murmur rub gallop He remains soft nontender Extremity exam was no edema Neurologically awake alert oriented - Labs CBC & Chem 7: 12/21/21 05:20 12/21/21 05:20 Labs: Abnormal Lab Results - Last 24 Hours (Table) 12/21/21 Range/Units 00:00 Procalcitonin 7.73 H (0.02-0.09) ng/mL Microbiology - Last 24 Hours (Table) 12/22/21 03:42 Stool Culture - Preliminary Stool 12/20/21 18:35 Blood Culture - Preliminary Blood No Growth after 24 hours 12/20/21 18:41 Blood Culture Gram Stain - Preliminary Blood Blood Culture - Preliminary Escherichia coli 12/20/21 18:22 Urine Culture - Preliminary Urine,Clean Catch 12/20/21 18:41 Blood Culture - Final Blood Assessment and Plan Assessment: Impression 1. Acute kidney injury of her transplanted kidney, secondary to E. coli bacteremia creatinine 1.2 baseline went up to 2.28 and 2.34 yesterday. Labs are pending 2. E. coli bacteremia cause not very clear urinalysis suggestive urine cultures are pending. 3. Hypotension resolved. Recommendation 1. Maintain immunosuppressive medication currently on mycophenolate mofetil 500 twice a day and prednisone 5 mg a day and tacrolimus 2 mg daily 2. Check Prograf level. 3. Check labs today if not done 4. Continue antibiotics and until sensitivity results are available. If her to the primary physician and infectious diseases regarding discharge
--- NOTE | 2021-12-22 13:45 | P.PN ---
Subjective Progress Note Date: 12/22/21 No new complaints. Reports feeling completely back to normal. Gen: in no apparent distress, resting comfortably in bed Eyes: PERRL, no scleral injection or icterus HENT: normocephalic, atraumatic, good hearing acuity, moist mucous membranes Neck: no tracheal deviation, full range of motion Resp: good air exchange, breathing comfortably with no accessory muscle use, no tactile fremitus CVS: good distal perfusion x 4, no pitting edema GI: soft, NTTP, ND, no hepatosplenomegaly : no suprapubic tenderness, no CVAT, alvarez catheter not present MSK: no clubbing, no cyanosis, no noted contractures of extremities Skin: no noted rashes, petechiae; temperature of skin is appropriate Neuro: moving all extremities without signs of weakness, CN II-XII intact Psych: cooperative, euthymic mood, insight and judgment intact Assessment/plan: Sepsis with Pyelonephritis of kidney transplant Gram-negative bacteremia Acute kidney injury superimposed on chronic kidney disease -Admit to inpatient, telemetry -Follow up urine culture, blood culture -Ceftriaxone, can discontinue Flagyl -IV fluids -Nephrology consult Hypertension Migraines History of breast cancer -Home medications reviewed and reconciled Patient is full code DVT prophylaxis with heparin 3 times a day Objective - Vital Signs Vital signs: Vital Signs Temp 97.8 F 12/22/21 08:45 Pulse 90 12/22/21 12:45 Resp 18 12/22/21 12:45 BP 137/85 12/22/21 12:45 Pulse Ox 100 12/22/21 12:45 FiO2 Intake & Output 12/21/21 12/22/21 12/22/21 18:59 06:59 18:59 Intake Total 1977 240 Balance 1977 240 Weight 77.111 kg Intake: Intake, IV Titration 1140 Amount Sodium Chloride 0.9% 1, 1040 000 ml @ 130 mls/hr IV . Q7H42M [facility] Rx#:[id number] metroNIDAZOLE-NS PMX 500 100 mg In Saline 1 100ml.bag @ 100 mls/hr IVPB Q8HR [facility] Rx#:[id number] Oral 838 240 - Labs CBC & Chem 7: 12/21/21 05:20 12/21/21 05:20 Labs: Abnormal Lab Results - Last 24 Hours (Table) 12/21/21 12/22/21 Range/Units 00:00 03:42 Procalcitonin 7.73 H (0.02-0.09) ng/mL Stool Lactoferrin POSITIVE A (NEGATIVE) Microbiology - Last 24 Hours (Table) 12/22/21 03:42 Stool Culture - Preliminary Stool 12/20/21 18:35 Blood Culture - Preliminary Blood No Growth after 24 hours 12/20/21 18:41 Blood Culture Gram Stain - Preliminary Blood Blood Culture - Preliminary Escherichia coli 12/20/21 18:22 Urine Culture - Preliminary Urine,Clean Catch
--- NOTE | 2021-12-22 17:47 | P.PN ---
Subjective HISTORY OF PRESENTING ILLNESS Patient has a known history of hypertension, chronic renal failure status post kidney transplant 2015. She is seen Dr. Martinez in the office. We have been consulted for elevated troponins. Trocar flatted 0.85, 0.90. Patient initially came in with headache nausea vomiting and diarrhea. She has not had any episodes of chest pain, palpitations, increased shortness of breath, dizziness, syncope, or edema. Initial EKG showed sinus tachycardia, on repeat it shows sinus rhythm. Her BUN is 30 creatinine is 2.34. Chest x-ray is negative for acute cardiopulmonary process. Abdominal pelvic CT is negative for acute process. Patient had a Cardiolite stress test in 2013 which showed normal myocardial perfusion. She h ad an echocardiogram at that same time and showed a normal LV function without valvular disease. Patient examined today ER resting comfortably. She continues to deny any chest pain or increased shortness breath. She is not in acute distress. ACS is been ruled out, EKG shows no evidence of ischemic changes. Elevated troponins are secondary to chronic kidney disease. Patient is on aspirin and Lopressor, continue. Will obtain an echocardiogram. If patient has a normal left ventricular function without abnormal wall motion. Patient is cleared to be discharged from a cardiac standpoint and follow-up outpatient with Dr. Martinez for outpatient stress test 12/22 Patient seen and examined. Patient denies any chest pain or pressure. Echocardiogram shows preserved EF without significant valvular disease. No further fevers or chills. No hypotension. PHYSICAL EXAMINATION Vital signs reviewed. CONSTITUTIONAL: No apparent distress. HEENT: Head is normocephalic. Pupils are equal, round. Sclerae anicteric. Mucous membranes of the mouth are moist. No JVD. No carotid bruit. CHEST EXAMINATION: Lungs are clear to auscultation. No chest wall tenderness is noted on palpation or with deep breathing. HEART EXAMINATION: Regular rate and rhythm. S1, S2 heard. No murmurs, gallops or rub. ABDOMEN: Soft, nontender. Positive bowel sounds. EXTREMITIES: 2+ peripheral pulses, no lower extremity edema and no calf tenderness. NEUROLOGIC EXAMINATION: Patient is awake, alert and oriented x3. ASSESSMENT 1. Sepsis related to UTI 2. Gram-negative bacteremia 3. Acute on chronic kidney disease 4. History of breast cancer 5. Non-STEMI related to sepsis and CKD 6. Status post kidney transplant on immunosuppressants PLAN Patient not having any significant angina-type symptoms and elevated troponins appear related to sepsis and chronic kidney disease. Continue with current supportive care. Patient stable for discharge home from cardiology standpoint with outpatient follow-up in 1 week. Objective - Vital Signs Vital signs: Vital Signs Temp 97.8 F 12/22/21 08:45 Pulse 84 12/22/21 16:16 Resp 18 12/22/21 16:16 BP 119/75 12/22/21 16:01 Pulse Ox 97 12/22/21 16:01 FiO2 Intake & Output 12/21/21 12/22/21 12/22/21 18:59 06:59 18:59 Intake Total 1977 480 Balance 1977 480 Weight 77.111 kg Intake: Intake, IV Titration 1140 Amount Sodium Chloride 0.9% 1, 1040 000 ml @ 130 mls/hr IV . Q7H42M [facility] Rx#:[id number] metroNIDAZOLE-NS PMX 500 100 mg In Saline 1 100ml.bag @ 100 mls/hr IVPB Q8HR [facility] Rx#:[id number] Oral 838 480 - Labs CBC & Chem 7: 12/21/21 05:20 12/21/21 05:20 Labs: Abnormal Lab Results - Last 24 Hours (Table) 12/21/21 12/22/21 Range/Units 00:00 03:42 Procalcitonin 7.73 H (0.02-0.09) ng/mL Stool Lactoferrin POSITIVE A (NEGATIVE) Microbiology - Last 24 Hours (Table) 12/20/21 18:41 Blood Culture Gram Stain - Preliminary Blood Blood Culture - Preliminary Escherichia coli 12/20/21 18:22 Urine Culture - Preliminary Urine,Clean Catch Gram Neg Bacilli 12/22/21 03:42 Stool Culture - Preliminary Stool 12/20/21 18:35 Blood Culture - Preliminary Blood No Growth after 24 hours
[2021-12-23] MEDS: SODIUM CHLORIDE 0.9% 1,000 ML IV SCH ×7 (01:33→23:00)
[2021-12-23] MEDS: PANTOPRAZOLE 40 MG/10 ML VIAL IVP SCH (08:23)
[2021-12-23] MEDS: predniSONE 5 MG TAB PO SCH (08:23)
[2021-12-23] MEDS: ENOXAPARIN 30 MG/0.3 ML SYRINGE SQ SCH (08:23)
[2021-12-23] MEDS: ASPIRIN 325 MG TAB PO SCH (08:23)
[2021-12-23] MEDS: METOPROLOL TARTRATE 50 MG TAB PO SCH ×2 (08:23→21:25)
[2021-12-23] MEDS: ACETAMINOPHEN TAB 325 MG TAB PO PRN ×2 (08:23→21:31)
--- NOTE | 2021-12-23 09:35 | P.PN ---
Subjective Progress Note Date: 12/23/21 Principal diagnosis: This is a 51-year-old female with status post disease donor kidney transplant in 2016 came in with generalized weakness. She has acute kidney injury transplant pyelonephritis with urinary tract infection and bacteremia. she was totally asymptomatic and denying any dysuria frequency suprapubic discomfort. Currently she is feeling very well walking around has no complaints at all. No dysuria frequency diarrhea and nausea vomiting appetite is good no dizziness no chest pain fever chills. Vital signs are stable. Creatinine is not available for the last 2 days, pending today's labs Objective - Vital Signs Vital signs: Vital Signs Temp 98.4 F 12/23/21 03:16 Pulse 80 12/23/21 04:00 Resp 18 12/23/21 03:16 BP 151/82 12/23/21 04:00 Pulse Ox 99 12/23/21 03:16 FiO2 Intake & Output 12/22/21 12/23/21 12/23/21 18:59 06:59 18:59 Intake Total 480 Balance 480 Intake: Oral 480 Awake alert oriented comfortable HEENT exam no JVP neck is supple no facial asymmetry Lungs clear to auscultation good air entry bilaterally Heart sounds unremarkable for any murmur rub gallop abdomen soft nontender Extremity exam was no edema Neurologically awake alert oriented. - Labs CBC & Chem 7: 12/21/21 05:20 12/21/21 05:20 Labs: Abnormal Lab Results - Last 24 Hours (Table) 12/22/21 Range/Units 03:42 Stool Lactoferrin POSITIVE A (NEGATIVE) Microbiology - Last 24 Hours (Table) 12/20/21 18:35 Blood Culture - Preliminary Blood No Growth after 48 hours 12/20/21 18:41 Blood Culture Gram Stain - Preliminary Blood Blood Culture - Preliminary Escherichia coli 12/20/21 18:22 Urine Culture - Preliminary Urine,Clean Catch Gram Neg Bacilli 12/22/21 03:42 Stool Culture - Preliminary Stool Assessment and Plan Assessment: Impression 1. Acute kidney injury of her transplanted kidney, secondary to E. coli bacteremia creatinine 1.2 baseline went up to 2.28 and 2.34 day before yesterday. Labs are pending 2. E. coli bacteremia and transplant balance nephritis with urine growing gram- negative bacilli 3. Hypotension resolved. 4. Transplant kidney on immunosuppressive medications Recommendation 1. Maintain immunosuppressive medication currently on mycophenolate mofetil 500 twice a day and prednisone 5 mg a day and tacrolimus 2 mg daily 2. Check Prograf level. 3. Check labs today 4. Continue antibiotics and until sensitivity results are available. Defer to primary physician and infectious diseases regarding discharge
[2021-12-23 11:56] LABS: Albumin 3.1 g/dL (3.5-5.0); Total Bilirubin 0.3 mg/dL (0.2-1.3); Total Protein 5.4 g/dL (6.3-8.2)
--- NOTE | 2021-12-23 13:53 | P.PN ---
Subjective Progress Note Date: 12/23/21 No new complaints. Reports feeling completely back to normal. Cr however is worse today. Gen: in no apparent distress, resting comfortably in bed Eyes: PERRL, no scleral injection or icterus HENT: normocephalic, atraumatic, good hearing acuity, moist mucous membranes Neck: no tracheal deviation, full range of motion Resp: good air exchange, breathing comfortably with no accessory muscle use, no tactile fremitus CVS: good distal perfusion x 4, no pitting edema GI: soft, NTTP, ND, no hepatosplenomegaly : no suprapubic tenderness, no CVAT, alvarez catheter not present MSK: no clubbing, no cyanosis, no noted contractures of extremities Skin: no noted rashes, petechiae; temperature of skin is appropriate Neuro: moving all extremities without signs of weakness, CN II-XII intact Psych: cooperative, euthymic mood, insight and judgment intact Assessment/plan: Sepsis with Pyelonephritis of kidney transplant Gram-negative bacteremia Acute kidney injury superimposed on chronic kidney disease -Admit to inpatient, telemetry -Follow up urine culture, blood culture -Ceftriaxone, can discontinue Flagyl -IV fluids -Nephrology consult Hypertension Migraines History of breast cancer -Home medications reviewed and reconciled Patient is full code DVT prophylaxis with heparin 3 times a day Objective - Vital Signs Vital signs: Vital Signs Temp 97.8 F 12/23/21 12:10 Pulse 77 12/23/21 12:10 Resp 18 12/23/21 12:10 BP 163/88 12/23/21 13:39 Pulse Ox 99 12/23/21 12:10 FiO2 Intake & Output 12/22/21 12/23/21 12/23/21 18:59 06:59 18:59 Intake Total 480 360 Balance 480 360 Intake: Oral 480 360 Other: # Bowel Movements 0 - Labs CBC & Chem 7: 12/21/21 05:20 12/23/21 11:29 Labs: Abnormal Lab Results - Last 24 Hours (Table) 12/23/21 Range/Units 11:29 Sodium 133 L (137-145) mmol/L Carbon Dioxide 21 L (22-30) mmol/L BUN 40 H (7-17) mg/dL Creatinine 3.11 H (0.52-1.04) mg/dL Glucose 108 H (74-99) mg/dL Total Protein 5.4 L (6.3-8.2) g/dL Albumin 3.1 L (3.5-5.0) g/dL Microbiology - Last 24 Hours (Table) 12/20/21 18:22 Urine Culture - Final Urine,Clean Catch Escherichia coli 12/20/21 18:41 Blood Culture Gram Stain - Final Blood Blood Culture - Final Escherichia coli 12/20/21 18:35 Blood Culture - Preliminary Blood No Growth after 48 hours
--- NOTE | 2021-12-23 16:46 | P.PN ---
Subjective HISTORY OF PRESENTING ILLNESS Patient has a known history of hypertension, chronic renal failure status post kidney transplant 2015. She is seen Dr. Martinez in the office. We have been consulted for elevated troponins. Trocar flatted 0.85, 0.90. Patient initially came in with headache nausea vomiting and diarrhea. She has not had any episodes of chest pain, palpitations, increased shortness of breath, dizziness, syncope, or edema. Initial EKG showed sinus tachycardia, on repeat it shows sinus rhythm. Her BUN is 30 creatinine is 2.34. Chest x-ray is negative for acute cardiopulmonary process. Abdominal pelvic CT is negative for acute process. Patient had a Cardiolite stress test in 2013 which showed normal myocardial perfusion. She h ad an echocardiogram at that same time and showed a normal LV function without valvular disease. Patient examined today ER resting comfortably. She continues to deny any chest pain or increased shortness breath. She is not in acute distress. ACS is been ruled out, EKG shows no evidence of ischemic changes. Elevated troponins are secondary to chronic kidney disease. Patient is on aspirin and Lopressor, continue. Will obtain an echocardiogram. If patient has a normal left ventricular function without abnormal wall motion. Patient is cleared to be discharged from a cardiac standpoint and follow-up outpatient with Dr. Martinez for outpatient stress test 12/22 Patient seen and examined. Patient denies any chest pain or pressure. Echocardiogram shows preserved EF without significant valvular disease. No further fevers or chills. No hypotension. 12/23 Patient seen and examined. Patient overall states she has been feeling well however blood pressure is increased and mild increasing creatinine from 2.3 up to 3.1. Blood pressures labile from low 100s up to 160s 170s systolic. PHYSICAL EXAMINATION Vital signs reviewed. CONSTITUTIONAL: No apparent distress. HEENT: Head is normocephalic. Pupils are equal, round. Sclerae anicteric. Mucous membranes of the mouth are moist. No JVD. No carotid bruit. CHEST EXAMINATION: Lungs are clear to auscultation. No chest wall tenderness is noted on palpation or with deep breathing. HEART EXAMINATION: Regular rate and rhythm. S1, S2 heard. No murmurs, gallops or rub. ABDOMEN: Soft, nontender. Positive bowel sounds. EXTREMITIES: 2+ peripheral pulses, no lower extremity edema and no calf tenderness. NEUROLOGIC EXAMINATION: Patient is awake, alert and oriented x3. ASSESSMENT 1. Sepsis related to UTI 2. Gram-negative bacteremia 3. Acute on chronic kidney disease 4. History of breast cancer 5. Non-STEMI related to sepsis and CKD 6. Status post kidney transplant on immunosuppressants PLAN Patient not having any significant angina-type symptoms and elevated troponins appear related to sepsis and chronic kidney disease. Continue with current supportive care. Patient with worsened kidney function may be related to labile blood pressures. Additionally however blood pressure more elevated today. Patient's blood pressure has been labile and therefore will only add as needed hydralazine for now for now. If remains elevated may need further adjustements. Await repeat Cr tomorrow. Objective - Vital Signs Vital signs: Vital Signs Temp 97.8 F 12/23/21 12:10 Pulse 77 12/23/21 12:10 Resp 18 12/23/21 12:10 BP 163/88 12/23/21 13:39 Pulse Ox 99 12/23/21 12:10 FiO2 Intake & Output 12/22/21 12/23/21 12/23/21 18:59 06:59 18:59 Intake Total 480 360 Balance 480 360 Intake: Oral 480 360 Other: # Bowel Movements 0 - Labs CBC & Chem 7: 12/21/21 05:20 12/23/21 11:29 Labs: Abnormal Lab Results - Last 24 Hours (Table) 12/23/21 Range/Units 11:29 Sodium 133 L (137-145) mmol/L Carbon Dioxide 21 L (22-30) mmol/L BUN 40 H (7-17) mg/dL Creatinine 3.11 H (0.52-1.04) mg/dL Glucose 108 H (74-99) mg/dL Total Protein 5.4 L (6.3-8.2) g/dL Albumin 3.1 L (3.5-5.0) g/dL Microbiology - Last 24 Hours (Table) 12/20/21 18:22 Urine Culture - Final Urine,Clean Catch Escherichia coli 12/20/21 18:41 Blood Culture Gram Stain - Final Blood Blood Culture - Final Escherichia coli 12/20/21 18:35 Blood Culture - Preliminary Blood No Growth after 48 hours
[2021-12-23] MEDS: hydrALAZINE HCL 20 MG/ML 1 ML VIAL IVP PRN (21:31)
[2021-12-24] MEDS: SODIUM CHLORIDE 0.9% 1,000 ML IV SCH ×4 (02:06→15:11)
[2021-12-24] MEDS: ACETAMINOPHEN TAB 325 MG TAB PO PRN ×2 (03:13→21:12)
[2021-12-24] MEDS: hydrALAZINE HCL 20 MG/ML 1 ML VIAL IVP PRN (05:01)
[2021-12-24 07:25] LABS: Basophils % (A) 0 %; Eosinophils # (A) 0.2 k/uL (0-0.7); Eosinophils % (A) 2 %; HCT 36.6 % (34.0-46.0); HGB 11.6 gm/dL (11.4-16.0); Lymphocytes # (A) 1.1 k/uL (1.0-4.8); Lymphocytes % (A) 12 %; MCH 28.9 pg (25.0-35.0); MCHC 31.6 g/dL (31.0-37.0); MCV 91.3 fL (80.0-100.0); Mean Platelet Volume 7.3; Monocytes # (A) 0.5 k/uL (0-1.0); Monocytes % (A) 6 %; Neutrophils # (A) 7.7 k/uL (1.3-7.7); Neutrophils % (A) 80 %; Platelet Count 208 k/uL (150-450); RBC 4.01 m/uL (3.80-5.40); RDW 13.3 % (11.5-15.5); WBC 9.6 k/uL (3.8-10.6)
[2021-12-24 07:34] LABS: Albumin 2.8 g/dL (3.5-5.0); Calcium 8.7 mg/dL (8.4-10.2); Potassium 3.7 mmol/L (3.5-5.1); Total Bilirubin 0.3 mg/dL (0.2-1.3)
[2021-12-24] MEDS ORDERED: SUMAtriptan succinate 25 MG TAB PO STA (10:24)
--- NOTE | 2021-12-24 10:48 | P.PN ---
Subjective Patient has a known history of hypertension, chronic renal failure status post kidney transplant 2016. She is seen Dr. Martinez in the office, last followed up in 2019. We have been consulted for elevated troponins. Patient initially came in with headache nausea vomiting and diarrhea. She has not had any episodes of chest pain, palpitations, increased shortness of breath, dizziness, syncope, or edema. Initial EKG showed sinus tachycardia, on repeat it shows sinus rhythm. She was also found to have acute kidney injury. acute process. Patient had a Cardiolite stress test in 2013 which showed normal myocardial perfusion. Echocardiogram revealed EF 5560%, no significant valvular wall motion abnormalities. Troponin 0.05, 0.03, 0.09 12/24 Patient seen and examined. Patient overall states she has been feeling well however renal function worsening, increased to 3.0. Blood pressures have improved. Blood pressure 154/84, heart rate 99, afebrile, saturations 98% room air. She's currently maintained on daily aspirin, atorvastatin 40 mg daily, metoprolol tartrate 50 mg twice a day PHYSICAL EXAMINATION Vital signs reviewed. CONSTITUTIONAL: No apparent distress. HEENT: Neck Supple. No JVD. No carotid bruit. CHEST EXAMINATION: Lungs are clear to auscultation. No chest wall tenderness is noted on palpation or with deep breathing. HEART EXAMINATION: Regular rate and rhythm. S1, S2 heard. No murmurs, gallops or rub. ABDOMEN: Soft, nontender. Positive bowel sounds. EXTREMITIES: 2+ peripheral pulses, no lower extremity edema and no calf tenderness. NEUROLOGIC EXAMINATION: Patient is awake, alert and oriented x3. ASSESSMENT Sepsis related to UTI Gram-negative bacteremia Acute on chronic kidney disease Lactic acidosis, improved History of breast cancer Non-STEMI related to sepsis and CKD Status post kidney transplant on immunosuppressants PLAN Patient not having any significant angina-type symptoms and elevated troponins appear related to sepsis and chronic kidney disease. Continue with current supportive care. Increase metoprolol 75mg BID Start statin Further recommendations based on clinical course Nurse practitioner note has been reviewed by physician. Signing provider agrees with the documented findings, assessment, and plan of care. Objective - Vital Signs Vital signs: Vital Signs Temp 98.2 F 12/24/21 08:12 Pulse 99 12/24/21 10:28 Resp 18 12/24/21 10:28 BP 154/84 12/24/21 08:12 Pulse Ox 98 12/24/21 08:12 FiO2 Intake & Output 12/23/21 12/24/21 12/24/21 18:59 06:59 18:59 Intake Total 360 Balance 360 Intake: Oral 360 Other: # Voids 2 # Bowel Movements 0 - Labs CBC & Chem 7: 12/24/21 07:06 12/24/21 07:06 Labs: Abnormal Lab Results - Last 24 Hours (Table) 12/23/21 12/24/21 Range/Units 11:29 07:06 Sodium 133 L 133 L (137-145) mmol/L Chloride 108 H (98-107) mmol/L Carbon Dioxide 21 L 19 L (22-30) mmol/L BUN 40 H 47 H (7-17) mg/dL Creatinine 3.11 H 3.06 H (0.52-1.04) mg/dL Glucose 108 H 109 H (74-99) mg/dL AST 82 H (14-36) U/L ALT 58 H (4-34) U/L Total Protein 5.4 L 5.0 L (6.3-8.2) g/dL Albumin 3.1 L 2.8 L (3.5-5.0) g/dL Microbiology - Last 24 Hours (Table) 12/22/21 03:42 Stool Culture - Preliminary Stool 12/20/21 18:35 Blood Culture - Preliminary Blood No Growth after 72 hours 12/20/21 18:22 Urine Culture - Final Urine,Clean Catch Escherichia coli 12/20/21 18:41 Blood Culture Gram Stain - Final Blood Blood Culture - Final Escherichia coli
[2021-12-24] MEDS: ENOXAPARIN 30 MG/0.3 ML SYRINGE SQ SCH (11:55)
[2021-12-24] MEDS: METOPROLOL TARTRATE 50 MG TAB PO SCH ×2 (12:02→21:12)
[2021-12-24] MEDS: ASPIRIN 325 MG TAB PO SCH (12:02)
[2021-12-24] MEDS: PANTOPRAZOLE 40 MG/10 ML VIAL IVP SCH (12:03)
[2021-12-24] MEDS: ATORVASTATIN 40 MG TAB PO SCH (12:03)
[2021-12-24] MEDS: predniSONE 5 MG TAB PO SCH (12:03)
--- NOTE | 2021-12-24 12:03 | P.PN ---
Subjective Patient is seen in follow-up for acute kidney injury on chronic kidney disease and renal transplant management. Renal function stable with creatinine at 3.06 today. Admits to good urine output. No vomiting or diarrhea. Currently off IV fluids. Denies chest pain or shortness of breath. Vital signs are stable. General: Awake. No acute distress. HEENT: Head exam is unremarkable. LUNGS: Breath sounds decreased. HEART: Rate and Rhythm are regular. ABDOMEN: Soft, no distention. EXTREMITITES: No edema. Objective - Vital Signs Vital signs: Vital Signs Temp 98.2 F 12/24/21 08:12 Pulse 99 12/24/21 10:28 Resp 18 12/24/21 10:28 BP 154/84 12/24/21 08:12 Pulse Ox 98 12/24/21 08:12 FiO2 Intake & Output 12/23/21 12/24/21 12/24/21 18:59 06:59 18:59 Intake Total 360 Balance 360 Intake: Oral 360 Other: # Voids 2 # Bowel Movements 0 - Labs CBC & Chem 7: 12/24/21 07:06 12/24/21 07:06 Labs: Abnormal Lab Results - Last 24 Hours (Table) 12/23/21 12/24/21 Range/Units 11:29 07:06 Sodium 133 L 133 L (137-145) mmol/L Chloride 108 H (98-107) mmol/L Carbon Dioxide 21 L 19 L (22-30) mmol/L BUN 40 H 47 H (7-17) mg/dL Creatinine 3.11 H 3.06 H (0.52-1.04) mg/dL Glucose 108 H 109 H (74-99) mg/dL AST 82 H (14-36) U/L ALT 58 H (4-34) U/L Total Protein 5.4 L 5.0 L (6.3-8.2) g/dL Albumin 3.1 L 2.8 L (3.5-5.0) g/dL Microbiology - Last 24 Hours (Table) 12/22/21 03:42 Stool Culture - Preliminary Stool 12/20/21 18:35 Blood Culture - Preliminary Blood No Growth after 72 hours 12/20/21 18:22 Urine Culture - Final Urine,Clean Catch Escherichia coli 12/20/21 18:41 Blood Culture Gram Stain - Final Blood Blood Culture - Final Escherichia coli Assessment and Plan Plan: Assessment: 1. Acute kidney injury secondary to ATN secondary to severe sepsis. Creatinine peaked at 3.11 this admission and is 3.06 today. 2. E. coli UTI and bacteremia on antibiotics. 3. Chronic kidney disease stage IIIa with baseline creatinine near 1.2 from May 2021. 4. Status post is donor renal allograft done at [facility] in 2015. 5. Metabolic acidosis secondary to acute kidney injury. Plan: Resume normal saline at 50 mL an hour. Add oral bicarb. Maintain home immunosuppressive meds. Check Prograf level. Avoid nephrotoxins. Continue to monitor renal function and urine output.
--- NOTE | 2021-12-24 12:05 | P.PN ---
Subjective Progress Note Date: 12/24/21 Has headache today, Cr stable. Gen: in no apparent distress, resting comfortably in bed Eyes: PERRL, no scleral injection or icterus HENT: normocephalic, atraumatic, good hearing acuity, moist mucous membranes Neck: no tracheal deviation, full range of motion Resp: good air exchange, breathing comfortably with no accessory muscle use, no tactile fremitus CVS: good distal perfusion x 4, no pitting edema GI: soft, NTTP, ND, no hepatosplenomegaly : no suprapubic tenderness, no CVAT, alvarez catheter not present MSK: no clubbing, no cyanosis, no noted contractures of extremities Skin: no noted rashes, petechiae; temperature of skin is appropriate Neuro: moving all extremities without signs of weakness, CN II-XII intact Psych: cooperative, euthymic mood, insight and judgment intact Assessment/plan: Sepsis with Pyelonephritis of kidney transplant Gram-negative bacteremia Acute kidney injury superimposed on chronic kidney disease -Admit to inpatient, telemetry -Follow up urine culture, blood culture -Ceftriaxone, can discontinue Flagyl -IV fluids -Nephrology consult Hypertension Migraines History of breast cancer -Home medications reviewed and reconciled Patient is full code DVT prophylaxis with heparin 3 times a day Objective - Vital Signs Vital signs: Vital Signs Temp 98.2 F 12/24/21 08:12 Pulse 93 12/24/21 11:59 Resp 18 12/24/21 11:59 BP 154/84 12/24/21 08:12 Pulse Ox 98 12/24/21 11:59 FiO2 Intake & Output 12/23/21 12/24/21 12/24/21 18:59 06:59 18:59 Intake Total 360 Balance 360 Intake: Oral 360 Other: # Voids 2 # Bowel Movements 0 - Labs CBC & Chem 7: 12/24/21 07:06 12/24/21 07:06 Labs: Abnormal Lab Results - Last 24 Hours (Table) 12/24/21 Range/Units 07:06 Sodium 133 L (137-145) mmol/L Chloride 108 H (98-107) mmol/L Carbon Dioxide 19 L (22-30) mmol/L BUN 47 H (7-17) mg/dL Creatinine 3.06 H (0.52-1.04) mg/dL Glucose 109 H (74-99) mg/dL AST 82 H (14-36) U/L ALT 58 H (4-34) U/L Total Protein 5.0 L (6.3-8.2) g/dL Albumin 2.8 L (3.5-5.0) g/dL Microbiology - Last 24 Hours (Table) 12/22/21 03:42 Stool Culture - Preliminary Stool 12/20/21 18:35 Blood Culture - Preliminary Blood No Growth after 72 hours 12/20/21 18:22 Urine Culture - Final Urine,Clean Catch Escherichia coli 12/20/21 18:41 Blood Culture Gram Stain - Final Blood Blood Culture - Final Escherichia coli
[2021-12-24] MEDS: SODIUM BICARBONATE TAB 650 MG TAB PO SCH ×2 (14:44→21:19)
[2021-12-25] MEDS: ACETAMINOPHEN TAB 325 MG TAB PO PRN ×2 (04:23→09:05)
[2021-12-25] MEDS ORDERED: PANTOPRAZOLE 40 MG TABLET PO SCH (07:30)
[2021-12-25 08:51] LABS: Basophils % (A) 0 %; Eosinophils # (A) 0.1 k/uL (0-0.7); Eosinophils % (A) 1 %; HCT 35.3 % (34.0-46.0); HGB 11.6 gm/dL (11.4-16.0); Lymphocytes # (A) 1.7 k/uL (1.0-4.8); Lymphocytes % (A) 17 %; MCHC 32.8 g/dL (31.0-37.0); MCV 91.5 fL (80.0-100.0); Mean Platelet Volume 7.2; Monocytes # (A) 0.5 k/uL (0-1.0); Monocytes % (A) 5 %; Neutrophils # (A) 7.3 k/uL (1.3-7.7); Neutrophils % (A) 75 %; Platelet Count 224 k/uL (150-450); RBC 3.86 m/uL (3.80-5.40); RDW 13.5 % (11.5-15.5); WBC 9.7 k/uL (3.8-10.6)
[2021-12-25] MEDS ORDERED: amLODIPine 5 MG TAB PO SCH (09:00)
[2021-12-25] MEDS: ASPIRIN 325 MG TAB PO SCH (09:02)
[2021-12-25] MEDS: METOPROLOL TARTRATE 50 MG TAB PO SCH (09:04)
[2021-12-25] MEDS: ATORVASTATIN 40 MG TAB PO SCH (09:04)
[2021-12-25] MEDS: SODIUM BICARBONATE TAB 650 MG TAB PO SCH (09:05)
[2021-12-25] MEDS: predniSONE 5 MG TAB PO SCH (09:09)
[2021-12-25] MEDS: ENOXAPARIN 30 MG/0.3 ML SYRINGE SQ SCH (09:12)
[2021-12-25] MEDS: SODIUM CHLORIDE 0.9% 1,000 ML IV SCH (09:12)
[2021-12-25 09:16] LABS: Calcium 8.3 mg/dL (8.4-10.2); Magnesium 1.8 mg/dL (1.6-2.3); Potassium 3.6 mmol/L (3.5-5.1)
[2021-12-25] MEDS ORDERED: hydrALAZINE HCL 25 MG TAB PO SCH (10:45)
[2021-12-25] MEDS ORDERED: POTASSIUM CHLORIDE ER 20 MEQ TAB.ER PO STA (10:46)
--- NOTE | 2021-12-25 10:49 | P.PN ---
Subjective Patient is seen in follow-up for acute kidney injury on chronic kidney disease and renal transplant management. Renal function a little better today. Admits to good urine output. No vomiting or diarrhea. On normal saline. Denies chest pain or shortness of breath. Vital signs are stable. General: Awake. No acute distress. HEENT: Head exam is unremarkable. LUNGS: Breath sounds decreased. HEART: Rate and Rhythm are regular. ABDOMEN: Soft, no distention. EXTREMITITES: No edema. Objective - Vital Signs Vital signs: Vital Signs Temp 98.1 F 12/25/21 08:00 Pulse 97 12/25/21 08:00 Resp 18 12/25/21 08:00 BP 181/97 12/25/21 08:00 Pulse Ox 97 12/25/21 08:00 FiO2 Intake & Output 12/24/21 12/25/21 12/25/21 18:59 06:59 18:59 Intake Total 240 Balance 240 Intake: Oral 240 Other: # Voids 1 1 - Labs CBC & Chem 7: 12/25/21 07:46 12/25/21 07:46 Labs: Abnormal Lab Results - Last 24 Hours (Table) 12/25/21 Range/Units 07:46 Sodium 136 L (137-145) mmol/L Carbon Dioxide 20 L (22-30) mmol/L BUN 42 H (7-17) mg/dL Creatinine 2.90 H (0.52-1.04) mg/dL Calcium 8.3 L (8.4-10.2) mg/dL Microbiology - Last 24 Hours (Table) 12/22/21 03:42 Stool Culture - Final Stool 12/20/21 18:35 Blood Culture - Preliminary Blood No Growth after 96 hours Assessment and Plan Plan: Assessment: 1. Acute kidney injury secondary to ATN secondary to severe sepsis. Creatinine peaked at 3.11 this admission and is 2.90 today. 2. E. coli UTI and bacteremia on antibiotics. 3. Chronic kidney disease stage IIIa with baseline creatinine near 1.2 from May 2021. 4. Status post is donor renal allograft done at [facility] in 2015. 5. Metabolic acidosis secondary to acute kidney injury and IV fluids. On oral bicarb. Better. 6. Hypertension with chronic kidney disease. Plan: Maintain normal saline at 50 mL an hour. Maintain home immunosuppressive meds. Follow-up Prograf level. Avoid nephrotoxins. Continue to monitor renal function and urine output. Add hydralazine 25 mg 3 times a day. Hold for systolic blood pressure less than 125. 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 Repeat BMP and magnesium level as well as Prograf level to 3 days postdischarge.
[2021-12-25 11:56] VITALS: PULSE 84; RESP 16; TEMP 98
--- NOTE | 2021-12-25 12:15 | P.PN ---
Subjective Patient has a known history of hypertension, chronic renal failure status post kidney transplant 2015. She is seen Dr. Martinez in the office, last followed up in 2019. We have been consulted for elevated troponins. Patient initially came in with headache nausea vomiting and diarrhea. She has not had any episodes of chest pain, palpitations, increased shortness of breath, dizziness, syncope, or edema. Initial EKG showed sinus tachycardia, on repeat it shows sinus rhythm. She was also found to have acute kidney injury. acute process. Patient had a Cardiolite stress test in 2013 which showed normal myocardial perfusion. Echocardiogram revealed EF 5560%, no significant valvular wall motion abnormalities. Troponin 0.05, 0.03, 0.09 12/25 Patient seen and examined. Patient overall states she has been feeling well. BUN 42, Serum creatinin 2.9. Blood pressures have improved. Blood pressure remains elevated at 165/101, heart rate 84, afebrile, saturations 98% room air. She's currently maintained on daily aspirin, atorvastatin 40 mg daily, metoprolol tartrate 75 mg twice a day PHYSICAL EXAMINATION Vital signs reviewed. CONSTITUTIONAL: No apparent distress. HEENT: Neck Supple. No JVD. No carotid bruit. CHEST EXAMINATION: Lungs are clear to auscultation. No chest wall tenderness is noted on palpation or with deep breathing. HEART EXAMINATION: Regular rate and rhythm. S1, S2 heard. No murmurs, gallops or rub. ABDOMEN: Soft, nontender. Positive bowel sounds. EXTREMITIES: 2+ peripheral pulses, no lower extremity edema and no calf tenderness. NEUROLOGIC EXAMINATION: Patient is awake, alert and oriented x3. ASSESSMENT Sepsis related to UTI Gram-negative bacteremia Acute on chronic kidney disease Lactic acidosis, improved History of breast cancer Non-STEMI related to sepsis and CKD Status post kidney transplant on immunosuppressants PLAN Patient not having any significant angina-type symptoms and elevated troponins appear related to sepsis and chronic kidney disease. Continue with current supportive care. Start amlodipine 5mg daily Continue metoprolol 75mg BID and statin No other changes from a cardiology perspective at this time. Further recommendations based on clinical course Nurse practitioner note has been reviewed by physician. Signing provider agrees with the documented findings, assessment, and plan of care. Objective - Vital Signs Vital signs: Vital Signs Temp 98.1 F 12/25/21 08:00 Pulse 97 12/25/21 08:00 Resp 18 12/25/21 08:00 BP 181/97 12/25/21 08:00 Pulse Ox 97 12/25/21 08:00 FiO2 Intake & Output 12/24/21 12/25/21 12/25/21 18:59 06:59 18:59 Intake Total 240 Balance 240 Intake: Oral 240 Other: # Voids 1 1 - Labs CBC & Chem 7: 12/25/21 07:46 12/25/21 07:46 Labs: Abnormal Lab Results - Last 24 Hours (Table) 12/25/21 Range/Units 07:46 Sodium 136 L (137-145) mmol/L Carbon Dioxide 20 L (22-30) mmol/L BUN 42 H (7-17) mg/dL Creatinine 2.90 H (0.52-1.04) mg/dL Calcium 8.3 L (8.4-10.2) mg/dL Microbiology - Last 24 Hours (Table) 12/22/21 03:42 Stool Culture - Final Stool 12/20/21 18:35 Blood Culture - Preliminary Blood No Growth after 96 hours
--- NOTE | 2021-12-25 13:59 | P.DS ---
Providers Date of admission: 12/20/21 20:46 Expected date of discharge: 12/25/21 Attending physician: Kiran Harris MD Consults: 12/20/21 20:20 Consult Physician Urgent Consulting Provider: Vijaya Ryan Consult Reason/Comments: Acute on chronic renal injury, severe sepsis, pyelonephritis Do you want consulting provider notified?: Yes 12/21/21 02:22 Consult Physician Urgent Consulting Provider: James Okeefe Consult Reason/Comments: Elevated troponin Do you want consulting provider notified?: Yes, Notify in am Primary care physician: Stated None Hospital Course: 51-year-old woman with a medical history of end-stage renal disease status post donor kidney transplant in 2016 with CK D stage III of the transplant, hypertension, history of breast cancer, recurrent migraines presented with headache, nausea, vomiting. Patient says that this is typical of her migraine symptoms and they usually go away within 24 hours, however, this time the symptoms persisted for 3 days prior to her arrival to the emergency room. In addition, she experienced some bouts of diarrhea. She had not been eating well for the past 3 days due to these issues. She presented to the hospital for further evaluation at the request her after symptoms were not abating. She reports headache, nausea, vomiting, fever, chills, dysuria. She denies chest pain, palpitations, syncope, presyncope, abdominal pain, constipation, dyschezia, numbness/weakness of extremities. In the emergency room, upon my evaluation, patient is noted to be afebrile, 98/58, heart rate 96, 98% on room air. She has a leukocytosis to 11.0, platelets of 142. Chemistries show sodium of 134, BUN of 30, creatinine of 2.34 with a baseline creatinine of 1.2. Liver function tests show low protein and low albumin of 5.2, 3.1. Urinalysis was consistent with the urinary tract infection with 4+ protein, moderate blood, moderate leukocyte esterase, 18 red blood cells, 94 white blood cells, rare bacteria and 3 hyaline casts. Blood culture Gram stain returned positive for gram-negative bacteria. abdominal x- ray was negative for acute radiographic process. Chest x-ray was negative for an acute process. CT Abdomen pelvis was negative for acute process. Urine and blood cultures grew E. coli pansensitive. She received 4 days of Rocephin IV. She was discharged home with Bactrim for 6 more days to complete a total of 10 days. She did have elevated troponins of 0.05, 0.085, 0.09. Cardiology was consulted. Echocardiogram showed EF of 55-60% with mild concentric LVH and no regional wall motion abnormalities. Cardiology increased her metoprolol and added amlodipine for better blood pressure control. They recommended no further intervention. Nephrology was consulted for acute kidney injury on chronic kidney disease. Her creatinine peaked at 3.11 and was 2.90 at the time of discharge. Nephrology recommended continuing sodium bicarb 650 mg by mouth twice a day. Patient was seen and examined on 12/25/2021. Patient reported generally feeling well and was requesting to be discharged home. She denies any complaints. Patient is advised to repeat a BMP, magnesium level and tacrolimus level within 3 days. She is advised follow-up with her associate professor of surgery and [facility] within 1 week of discharge. The case was discussed with Dr. Prakash. Patient verbalized understanding of the plan. General: non toxic, no distress, appears at stated age Derm: warm, dry Head: atraumatic, normocephalic, symmetric Eyes: EOMI, no lid lag, anicteric sclera Mouth: no lip lesion, mucus membranes moist Cardiovascular: S1S2 reg, no murmur Lungs: CTA bilateral, no rhonchi, no rales , no accessory muscle use Abdominal: soft, nontender to palpation, no guarding, no appreciable organomegaly Ext: no gross muscle atrophy, no edema, no contractures Neuro: no focal neuro deficits Psych: Alert, oriented, appropriate affect Discharge diagnoses: Sepsis with Pyelonephritis of kidney transplant Gram-negative bacteremia Acute kidney injury superimposed on chronic kidney disease neck sign metabolic acidosis Hypertension Migraines History of breast cancer This complex discharge took 45 minutes to complete. Pertinent Studies: Chest x-ray Abdomen and pelvis CT Echocardiogram KUB Patient Condition at Discharge: Stable Plan - Discharge Summary Discharge Rx Participant: Yes New Discharge Prescriptions: New Atorvastatin [Lipitor] 40 mg PO DAILY #30 tab Metoprolol Tartrate [Lopressor] 75 mg PO BID #45 tab amLODIPine [Norvasc] 5 mg PO DAILY #30 tab Pantoprazole [Protonix] 40 mg PO AC-BRKFST #30 tab Sodium Bicarbonate Tab 650 mg PO BID #60 tab hydrALAZINE HCL [Apresoline] 25 mg PO TID #90 tab Sulfamethox-Tmp 800-160Mg [Bactrim DS 800-160 mg] 1 tab PO Q12HR #12 tab Aspirin 81 mg PO DAILY #30 tab Continue Tacrolimus [Envarsus Xr] 2 mg PO DAILY predniSONE 5 mg PO DAILY Acetaminophen [Tylenol Extra Strength] 1,000 mg PO Q6H PRN PRN Reason: Fever And/ Or Pain mycophenolate mofetiL [Cellcept] 500 mg PO BID Discontinued Metoprolol Tartrate 50 mg PO BID Discharge Medication List Tacrolimus [Envarsus Xr] 2 mg PO DAILY 03/27/19 [History] Acetaminophen [Tylenol Extra Strength] 1,000 mg PO Q6H PRN 12/20/21 [History] mycophenolate mofetiL [Cellcept] 500 mg PO BID 12/20/21 [History] predniSONE 5 mg PO DAILY 12/20/21 [History] Aspirin 81 mg PO DAILY #30 tab 12/25/21 [Rx] Atorvastatin [Lipitor] 40 mg PO DAILY #30 tab 12/25/21 [Rx] Metoprolol Tartrate [Lopressor] 75 mg PO BID #45 tab 12/25/21 [Rx] Pantoprazole [Protonix] 40 mg PO AC-BRKFST #30 tab 12/25/21 [Rx] Sodium Bicarbonate Tab 650 mg PO BID #60 tab 12/25/21 [Rx] Sulfamethox-Tmp 800-160Mg [Bactrim DS 800-160 mg] 1 tab PO Q12HR #12 tab 12/25/21 [Rx] amLODIPine [Norvasc] 5 mg PO DAILY #30 tab 12/25/21 [Rx] hydrALAZINE HCL [Apresoline] 25 mg PO TID #90 tab 12/25/21 [Rx] Follow up Appointment(s)/Referral(s): None,Stated [Primary Care Provider] - 1-2 days Ambulatory/Diagnostic Orders: Basic Metabolic Panel [LAB.AMB] Time Frame: 3 Days, Location: None Selected Magnesium [LAB.AMB] Time Frame: 3 Days, Location: None Selected Ambulatory Miscellaneous Order [MISC.AMB] Time Frame: 3 Days, Location: None Selected Activity/Diet/Wound Care/Special Instructions: Diet: Cardiac FU with you PCP within 1-2 days of DC. FU with your [employer] at [facility] within 1 week of discharge. Take all medications as advised. Repeat BMP, Magnesium level and Tacrolimus level. Follow up results with your PCP and [employer]. Discharge Disposition: HOME SELF-CARE
[2021-12-25 16:42] VITALS: BP 135/70
== END 2021-12-25 15:15 | disposition home or self-care (01) | DRG 698 ==
LOC: EC 16:23 → 3SCARD 20:46
PROVIDERS: ADMIT Internal Medicine; ATTEND Internal Medicine
DX: T86.19 Other complication of kidney transplant (principal); A41.51 Sepsis due to Escherichia coli [E. coli]; I21.A1 Myocardial infarction type 2; N17.0 Acute kidney failure with tubular necrosis; N18.6 End stage renal disease; R65.20 Severe sepsis without septic shock; D84.821 Immunodeficiency due to drugs; E87.2 Acidosis; N12 Tubulo-interstitial nephritis, not specified as acute or chronic; I12.0 Hypertensive chronic kidney disease with stage 5 chronic kidney disease or end stage renal disease; F32.A Depression, unspecified; E86.0 Dehydration; E83.42 Hypomagnesemia; T86.13 Kidney transplant infection; G43.909 Migraine, unspecified, not intractable, without status migrainosus; D63.1 Anemia in chronic kidney disease; B96.20 Unspecified Escherichia coli [E. coli] as the cause of diseases classified elsewhere; B96.89 Other specified bacterial agents as the cause of diseases classified elsewhere; Y83.0 Surgical operation with transplant of whole organ as the cause of abnormal reaction of the patient, or of later complication, without mention of misadventure at the time of the procedure; Z20.822 Contact with and (suspected) exposure to COVID-19; Z99.2 Dependence on renal dialysis; Z87.891 Personal history of nicotine dependence; Z79.82 Long term (current) use of aspirin; Z79.52 Long term (current) use of systemic steroids; Z88.5 Allergy status to narcotic agent; Z88.1 Allergy status to other antibiotic agents; Z88.8 Allergy status to other drugs, medicaments and biological substances; Z85.3 Personal history of malignant neoplasm of breast; Z90.710 Acquired absence of both cervix and uterus; Z90.89 Acquired absence of other organs; Z79.899 Other long term (current) drug therapy; Z98.890 Other specified postprocedural states; Z80.8 Family history of malignant neoplasm of other organs or systems; Z80.1 Family history of malignant neoplasm of trachea, bronchus and lung
CPT/HCPCS: 36415; 71046; 74019; 74176; 80048; 80053; 80197; 81001; 82150; 83605; 83630; 83690; 83735; 83993; 84100; 84145; 84484; 85025; 87040; 87045; 87046; 87077; 87086; 87186; 87324; 87635; 93005; 93306; 96365; 96366; 96367; 96368; 96372; 96375; 96376; 99291

== ENCOUNTER 2023-09-27 17:14 | Emergency (ER) | payer BC, MEDICARE, OTHER ==
--- NOTE | 2023-09-27 18:45 | ED ---
General Adult HPI - General Chief complaint: Wound/Laceration Stated complaint: Animal Bite/Cat Time Seen by Provider: 09/27/23 18:02 Source: patient, RN notes reviewed Mode of arrival: ambulatory Limitations: no limitations - History of Present Illness Initial comments: 53-year-old female presents to the emergency department for evaluation of cat scratches. Patient has multiple scratches on her right arm. She states that she attempted to clean them with soap and water. She reports that it is her personal cat that caused the scratches who is up-to-date on its vaccinations. Patient states that she is unsure when her last tetanus vaccination was. - Related Data Home Medications Medication Instructions Recorded Confirmed Tacrolimus [Envarsus Xr] 2 mg PO DAILY 03/27/19 12/20/21 Acetaminophen [Tylenol Extra 1,000 mg PO Q6H PRN 12/20/21 12/20/21 Strength] mycophenolate mofetiL [Cellcept] 500 mg PO BID 12/20/21 12/20/21 predniSONE 5 mg PO DAILY 12/20/21 12/20/21 Previous Rx's Medication Instructions Recorded Aspirin 81 mg PO DAILY #30 tab 12/25/21 Atorvastatin [Lipitor] 40 mg PO DAILY #30 tab 12/25/21 Metoprolol Tartrate [Lopressor] 75 mg PO BID #45 tab 12/25/21 Pantoprazole [Protonix] 40 mg PO AC-BRKFST #30 tab 12/25/21 Sodium Bicarbonate Tab 650 mg PO BID #60 tab 12/25/21 Sulfamethox-Tmp 800-160Mg [Bactrim 1 tab PO Q12HR #12 tab 12/25/21 DS 800-160 mg] amLODIPine [Norvasc] 5 mg PO DAILY #30 tab 12/25/21 hydrALAZINE HCL [Apresoline] 25 mg PO TID #90 tab 12/25/21 Azithromycin [Zithromax Z Pack] 1 tab PO DIRECTED #6 tab 09/27/23 Cephalexin [Keflex] 500 mg PO BID #14 cap 09/27/23 Allergies Allergy/AdvReac Type Severity Reaction Status Date / Time baclofen Allergy "could not Verified 09/27/23 17:44 function" codeine Allergy Vomiting Verified 09/27/23 17:44 sertraline HCl [From Zoloft] Allergy Rash/Hives Verified 09/27/23 17:44 Review of Systems ROS Statement: Those systems with pertinent positive or pertinent negative responses have been documented in the HPI. ROS Other: All systems not noted in ROS Statement are negative. Past Medical History Past Medical History: Cancer, Dialysis, GERD/Reflux, Hypertension, Renal Disease Additional Past Medical History / Comment(s): migraines, - hemodialysis TUE,RACHEL,SAT, end stage renal failure, pt has kidney transplant 2016 hx heart murmer, anemia, hx breast cancer History of Any Multi-Drug Resistant Organisms: None Reported Past Surgical History: Section, Hysterectomy, Tonsillectomy Additional Past Surgical History / Comment(s): peritoneal dialysis catheter insertion/removal, hemodialysis fistula-rt arm, kidney transplant Past Anesthesia/Blood Transfusion Reactions: Previous Problems w/ Anesthesia, Postoperative Nausea & Vomiting (PONV) Additional Past Anesthesia/Blood Transfusion Reaction / Comment(s): sometimes causes High BP Past Psychological History: Depression Smoking Status: Never smoker Past Alcohol Use History: None Reported Past Drug Use History: None Reported - Past Family History Sister(s) Family Medical History: Cancer Additional Family Medical History / Comment(s): melanoma Mother Family Medical History: Cancer Additional Family Medical History / Comment(s): lung cancer General Exam Limitations: no limitations General appearance: alert, in no apparent distress Head exam: Present: atraumatic, normocephalic, normal inspection Eye exam: Present: normal appearance, PERRL, EOMI. Absent: scleral icterus, conjunctival injection, periorbital swelling ENT exam: Present: normal exam, mucous membranes moist Neck exam: Present: normal inspection. Absent: tenderness, meningismus, lymphadenopathy Cardiovascular Exam: Present: regular rate, normal rhythm, normal heart sounds. Absent: systolic murmur, diastolic murmur, rubs, gallop, clicks Back exam: Present: normal inspection Neurological exam: Present: alert, oriented X3 Psychiatric exam: Present: normal affect, normal mood Skin exam: Present: warm, dry, normal color, other (Multiple small scratches and puncture wounds to the right arm). Absent: intact, rash Course Vital Signs 09/27/23 09/27/23 17:42 21:11 Temperature 98 F 98.2 F Pulse Rate 86 81 Respiratory 20 18 Rate Blood Pressure 132/81 127/91 O2 Sat by Pulse 100 97 Oximetry Medical Decision Making - Medical Decision Making Was pt. sent in by a medical professional or institution ([facility], [facility], urgent care, hospital, or halfway...) When possible be specific @ -No Did you speak to anyone other than the patient for history (EMS, parent, family, police, friend...)? What history was obtained from this source @ -No Did you review nursing and triage notes (agree or disagree)? Why? @ -I reviewed and agree with nursing and triage notes Were old charts reviewed (outside hosp., previous admission, EMS record, old EKG, old radiological studies, urgent care reports/EKG's, halfway records)? Report findings @ -No old charts were reviewed Differential Diagnosis (chest pain, altered mental status, abdominal pain women, abdominal pain men, vaginal bleeding, weakness, fever, dyspnea, syncope, headache, dizziness, GI bleed, back pain, seizure, CVA, palpatations, mental health, musculoskeletal)? @ -Cat scratch, abrasion, laceration, versus nonspecific EKG interpreted by me (3pts min.). @ -None e X-rays interpreted by me (1pt min.). @ -None done CT interpreted by me (1pt min.). @ -None done U/S interpreted by me (1pt. min.). @ -None done What testing was considered but not performed or refused? (CT, X-rays, U/S, labs)? Why? @ -None What meds were considered but not given or refused? Why? @ -None Did you discuss the management of the patient with other professionals (professionals i.e. [facility], [facility], lab, RT, psych nurse, health care social worker, senior quality analyst, teacher, credit officer, casework specialist)? Give summary @ -No Was smoking cessation discussed for >3mins.? @ -No Was critical care preformed (if so, how long)? @ -No Were there social determinants of health that impacted care today? How? (Homelessness, low income, unemployed, alcoholism, drug addiction, transportation, low edu. Level, literacy, decrease access to med. care, alf, rehab)? @ -No Was there de-escalation of care discussed even if they declined (Discuss DNR or withdrawal of care, Hospice)? DNR status @ -No What co-morbidities impacted this encounter? (DM, HTN, Smoking, COPD, CAD, Cancer, CVA, ARF, Chemo, Hep., AIDS, mental health diagnosis, sleep apnea, morbid obesity)? @ -None Was patient admitted / discharged? Hospital course, mention meds given and route, prescriptions, significant lab abnormalities, going to OR and other pertinent info. @ -Discharge. Patient presented to the emergency department for evaluation of cat scratches on her arms. She states that she was her personal cat. She is unsure when her last tetanus vaccine was this was updated today. The wounds were cleaned and dressed. Patient will be started on prophylactic antibiotics. She is understanding and agreeable with this plan. Patient stable at time of discharge. Undiagnosed new problem with uncertain prognosis? @ -No Drug Therapy requiring intensive monitoring for toxicity (Heparin, Nitro, Insulin, Cardizem)? @ -No Were any procedures done? @ -No Diagnosis/symptom? @ -Cat scratch Acute, or Chronic, or Acute on Chronic? @ -Acute Uncomplicated (without systemic symptoms) or Complicated (systemic symptoms)? @ -Uncomplicated Side effects of treatment? @ -No Exacerbation, Progression, or Severe Exacerbation? @ -No Poses a threat to life or bodily function? How? (Chest pain, USA, VT, pneumonia, PE, COPD, DKA, ARF, appy, cholecystitis, CVA, Diverticulitis, Homicidal, Suicidal, threat to staff... and all critical care pts) @ -No Disposition Clinical Impression: Laceration, Cat scratch Disposition: HOME SELF-CARE Condition: Stable Instructions (If sedation given, give patient instructions): Acute Wound Care (ED) Additional Instructions: Please keep wounds clean and dry. Follow up with your primary care provider. Return to the emergency department for new or worsening symptoms. Prescriptions: Cephalexin [Keflex] 500 mg PO BID #14 cap Azithromycin [Zithromax Z Pack] 1 tab PO DIRECTED #6 tab Is patient prescribed a controlled substance at d/c from ED?: No Referrals: None,Stated [Primary Care Provider] - 1-2 days
[2023-09-27] MEDS: DIPH,PERTUS(ACELL)TETVAC-LF 0.5 ML VIAL IM ONE (20:22)
[2023-09-27 21:12] VITALS: BP 127/91; PULSE 81; RESP 18; TEMP 98.2
== END 2023-09-27 21:19 | disposition home or self-care (01) ==
LOC: EC 17:14
DX: S41.111A Laceration without foreign body of right upper arm, initial encounter (principal); Z88.5 Allergy status to narcotic agent; Z88.6 Allergy status to analgesic agent; Z88.8 Allergy status to other drugs, medicaments and biological substances; Z23 Encounter for immunization; W55.03XA Scratched by cat, initial encounter
CPT/HCPCS: 90471; 90715; 99282

== ENCOUNTER 2024-10-02 11:45 | Inpatient (IN) | payer BC ==
--- NOTE | 2024-10-02 12:17 | ED ---
General Adult HPI - General Chief complaint: Nausea/Vomiting/Diarrhea Stated complaint: N/V/D Time Seen by Provider: 10/02/24 12:02 Source: patient, RN notes reviewed, old records reviewed Mode of arrival: ambulatory Limitations: no limitations - History of Present Illness Initial comments: 54 yo female history of renal transplant presenting for evaluation of nausea vomiting and diarrhea. Patient symptoms began 2 days prior with vomiting in the evening. No associated abdominal pain. This was only when the patient was lying flat and only in the evening. She subsequently developed diarrhea which began today. No known sick contacts. No fever. No abdominal pain. - Related Data Home Medications Medication Instructions Recorded Confirmed Tacrolimus [Envarsus Xr] 2 mg PO DAILY 03/27/19 12/20/21 Acetaminophen [Tylenol Extra 1,000 mg PO Q6H PRN 12/20/21 12/20/21 Strength] mycophenolate mofetiL [Cellcept] 500 mg PO BID 12/20/21 12/20/21 predniSONE 5 mg PO DAILY 12/20/21 12/20/21 Previous Rx's Medication Instructions Recorded Aspirin 81 mg PO DAILY #30 tab 12/25/21 Atorvastatin [Lipitor] 40 mg PO DAILY #30 tab 12/25/21 Metoprolol Tartrate [Lopressor] 75 mg PO BID #45 tab 12/25/21 Pantoprazole [Protonix] 40 mg PO AC-BRKFST #30 tab 12/25/21 Sodium Bicarbonate Tab 650 mg PO BID #60 tab 12/25/21 Sulfamethox-Tmp 800-160Mg [Bactrim 1 tab PO Q12HR #12 tab 12/25/21 DS 800-160 mg] amLODIPine [Norvasc] 5 mg PO DAILY #30 tab 12/25/21 hydrALAZINE HCL [Apresoline] 25 mg PO TID #90 tab 12/25/21 Azithromycin [Zithromax Z Pack] 1 tab PO DIRECTED #6 tab 09/27/23 Cephalexin [Keflex] 500 mg PO BID #14 cap 09/27/23 Allergies Allergy/AdvReac Type Severity Reaction Status Date / Time baclofen Allergy "could not Verified 10/02/24 12:03 function" codeine Allergy Vomiting Verified 10/02/24 12:03 sertraline HCl [From Zoloft] Allergy Rash/Hives Verified 10/02/24 12:03 Review of Systems ROS Statement: Those systems with pertinent positive or pertinent negative responses have been documented in the HPI. ROS Other: All systems not noted in ROS Statement are negative. Past Medical History Past Medical History: Cancer, Dialysis, GERD/Reflux, Hypertension, Renal Disease Additional Past Medical History / Comment(s): migraines, - hemodialysis TUE,RACHEL,SAT, end stage renal failure, pt has kidney transplant 2016 hx heart murmer, anemia, hx breast cancer History of Any Multi-Drug Resistant Organisms: None Reported Past Surgical History: Section, Hysterectomy, Tonsillectomy Additional Past Surgical History / Comment(s): peritoneal dialysis catheter insertion/removal, hemodialysis fistula-rt arm, kidney transplant Past Anesthesia/Blood Transfusion Reactions: Previous Problems w/ Anesthesia, Postoperative Nausea & Vomiting (PONV) Additional Past Anesthesia/Blood Transfusion Reaction / Comment(s): sometimes causes High BP Past Psychological History: Depression Smoking Status: Never smoker Past Alcohol Use History: None Reported Past Drug Use History: None Reported - Past Family History Sister(s) Family Medical History: Cancer Additional Family Medical History / Comment(s): melanoma Mother Family Medical History: Cancer Additional Family Medical History / Comment(s): lung cancer General Exam Limitations: no limitations General appearance: alert, in no apparent distress Head exam: Present: atraumatic, normocephalic Eye exam: Present: normal appearance, PERRL ENT exam: Present: mucous membranes dry Neck exam: Present: normal inspection. Absent: tenderness, meningismus Respiratory exam: Present: normal lung sounds bilaterally. Absent: respiratory distress, wheezes Cardiovascular Exam: Present: normal rhythm, tachycardia GI/Abdominal exam: Present: soft. Absent: distended, tenderness, guarding, rebound Extremities exam: Present: normal inspection, normal capillary refill Neurological exam: Present: alert, oriented X3, CN II-XII intact. Absent: motor sensory deficit Psychiatric exam: Present: normal affect, normal mood Skin exam: Present: warm, dry, intact. Absent: cyanosis, diaphoretic Course Vital Signs 10/02/24 11:59 Temperature 98.7 F Pulse Rate 119 H Respiratory 16 Rate Blood Pressure 110/73 O2 Sat by Pulse 97 Oximetry Medical Decision Making - Medical Decision Making Was pt. sent in by a medical professional or institution (, PA, PRODUCT RESPONSIBILITY LIAISON, urgent care, hospital, or halfway...) When possible be specific @ -No Did you speak to anyone other than the patient for history (EMS, parent, family, police, friend...)? What history was obtained from this source @ -No Did you review nursing and triage notes (agree or disagree)? Why? @ -I reviewed and agree with nursing and triage notes Were old charts reviewed (outside hosp., previous admission, EMS record, old EKG, old radiological studies, urgent care reports/EKG's, halfway records)? Report findings @ -No old charts were reviewed Differential Weakness: Hypoglycemia, shock, sepsis, hyponatremia, anemia, infection, PR, ETOH, adverse medicine reaction, overdose, stroke, this is not meant to be an all-inclusive list. EKG interpreted by me (3pts min.). @ -As above X-rays interpreted by me (1pt min.). @ -None done CT interpreted by me (1pt min.). @ -None done U/S interpreted by me (1pt. min.). @ -None done What testing was considered but not performed or refused? (CT, X-rays, U/S, labs)? Why? @ -None What meds were considered but not given or refused? Why? @ -None Did you discuss the management of the patient with other professionals (professionals i.e. , PA, PRODUCT RESPONSIBILITY LIAISON, lab, RT, psych nurse, social science teacher, senior infrastructure architect, teacher, credit administration officer, pillowcase cutter)? Give summary @ - Dr. Gilmore Was smoking cessation discussed for >3mins.? @ -No Was critical care preformed (if so, how long)? @ -No Were there social determinants of health that impacted care today? How? (Homelessness, low income, unemployed, alcoholism, drug addiction, transportation, low edu. Level, literacy, decrease access to med. care, assisted, rehab)? @ -No Was there de-escalation of care discussed even if they declined (Discuss DNR or withdrawal of care, Hospice)? DNR status @ -No What co-morbidities impacted this encounter? (DM, HTN, Smoking, COPD, CAD, Cancer, CVA, ARF, Chemo, Hep., AIDS, mental health diagnosis, sleep apnea, morbid obesity)? @ -Renal transplant history of UTI with sepsis Was patient admitted / discharged? Hospital course, mention meds given and route, prescriptions, significant lab abnormalities, going to OR and other pertinent info. @ -54-year-old female presenting for evaluation of nausea vomiting and diarrhea. Patient states that she has had similar symptoms in the past with urinary tract infection. Patient is on immunosuppressants with history of renal transplant. Patient afebrile with stable vitals upon arrival mildly tachycardic. Patient given IV fluids and laboratory studies are obtained. There is a leukocytosis, chronic stable kidney disease. Urinalysis is suggestive of UTI. Urine culture and blood cultures are obtained as well as lactic acid. Patient started on ceftriaxone which previous urinalysis and urine culture did show E. coli susceptible to ceftriaxone. Patient admitted to Dr. Gilmore who is aware. Undiagnosed new problem with uncertain prognosis? @ -No Drug Therapy requiring intensive monitoring for toxicity (Heparin, Nitro, Insulin, Cardizem)? @ -No Were any procedures done? @ -No Diagnosis/symptom? @UTI with sepsis Acute, or Chronic, or Acute on Chronic? @ -Acute Uncomplicated (without systemic symptoms) or Complicated (systemic symptoms)? @ -Default Side effects of treatment? @ -No Exacerbation, Progression, or Severe Exacerbation? @ -No Poses a threat to life or bodily function? How? (Chest pain, USA, PR, pneumonia, PE, COPD, DKA, ARF, appy, cholecystitis, CVA, Diverticulitis, Homicidal, Suicidal, threat to staff... and all critical care pts) @Yes, sepsis, shock - Lab Data Result diagrams: 10/02/24 12:20 10/02/24 13:08 Lab Results 10/02/24 10/02/24 10/02/24 Range/Units 12:20 13:08 13:08 WBC 14.94 H (4.50-10.00) 10*3/uL RBC 4.25 (4.10-5.20) 10*6/uL Hgb 12.4 (12.0-15.0) g/dL Hct 37.7 (37.2-46.3) % MCV 88.7 (80.0-97.0) fL MCH 29.2 (27.0-32.0) pg MCHC 32.9 (32.0-37.0) g/dL Plt Count 195 (140-440) 10*3/uL MPV 9.3 L (9.5-12.2) fL Immature Gran % (Auto) 0.5 % Neutrophils % 82.1 % Lymphocytes % 8.6 % Monocytes % 7.8 % Eosinophils % 0.7 % Basophils % 0.3 % Immature Gran # 0.07 H (0.00-0.04) 10*3/uL Neutrophils # 12.28 H (1.80-7.70) 10*3/uL Lymphocytes # 1.29 (0.90-5.00) 10*3/uL Monocytes # 1.16 H (0.20-1.00) 10*3/uL Eosinophils # 0.10 (0.04-0.35) 10*3/uL Basophils # 0.04 (0.00-0.10) 10*3/uL Manual Slide Review Performed Immature Plt Fraction 2.2 (1.1-6.1) % Sodium 135 L (137-145) mmol/L Potassium 4.5 (3.5-5.1) mmol/L Chloride 98 (98-107) mmol/L Carbon Dioxide 24 (22-30) mmol/L Anion Gap 13 mmol/L BUN 38 H (7-17) mg/dL Creatinine 2.08 H (0.52-1.04) mg/dL Est GFR (CKD-EPI)AfAm 30 (>60 ml/min/1.73 sqM) Est GFR (CKD-EPI)NonAf 26 (>60 ml/min/1.73 sqM) Glucose 112 H (74-99) mg/dL Calcium 9.9 (8.4-10.2) mg/dL Magnesium 1.6 (1.6-2.3) mg/dL Total Bilirubin 1.4 H (0.2-1.3) mg/dL AST 25 (14-36) U/L ALT 20 (4-34) U/L Alkaline Phosphatase 102 (38-126) U/L Total Protein 6.5 (6.3-8.2) g/dL Albumin 4.1 (3.5-5.0) g/dL Urine Color Light Yellow Urine Appearance Cloudy H (Clear) Urine pH 5.5 (5.0-8.0) Ur Specific [place] 1.013 (1.001-1.035) Urine Protein 1+ H (Negative) Urine Glucose (UA) Negative (Negative) Urine Ketones Negative (Negative) Urine Blood Moderate H (Negative) Urine Nitrite Negative (Negative) Urine Bilirubin Negative (Negative) Urine Urobilinogen <2.0 (<2.0) mg/dL Ur Leukocyte Esterase Large H (Negative) Urine RBC 8 H (0-5) /hpf Urine WBC >182 H (0-5) /hpf Ur Squamous Epith Cells <1 (0-4) /hpf Urine Bacteria Moderate H (None) /hpf Urine Mucus Rare H (None) /hpf Disposition Clinical Impression: Dehydration, UTI (urinary tract infection) Disposition: ADMITTED IP TO THIS HOSP Condition: Stable Is patient prescribed a controlled substance at d/c from ED?: No Referrals: Kemar Rogers DO [Primary Care Provider] - 1-2 days Time of Disposition: 14:05
[2024-10-02 12:33] LABS: Basophils # (A) 0.04 10*3/uL (0.00-0.10); Basophils % (A) 0.3 %; Eosinophils % (A) 0.7 %; HCT 37.7 % (37.2-46.3); HGB 12.4 g/dL (12.0-15.0); Immature Platelet Fraction 2.2 % (1.1-6.1); Lymphocytes # (A) 1.29 10*3/uL (0.90-5.00); Lymphocytes % (A) 8.6 %; MCH 29.2 pg (27.0-32.0); MCHC 32.9 g/dL (32.0-37.0); MCV 88.7 fL (80.0-97.0); Mean Platelet Volume 9.3 fL (9.5-12.2); Monocytes # (A) 1.16 10*3/uL (0.20-1.00); Monocytes % (A) 7.8 %; Neutrophils # (A) 12.28 10*3/uL (1.80-7.70); Neutrophils % (A) 82.1 %; Platelet Count 195 10*3/uL (140-440); RBC 4.25 10*6/uL (4.10-5.20); RDW 12.6 % (11.5-14.5); WBC 14.94 10*3/uL (4.50-10.00)
[2024-10-02] MEDS: LACTATED RINGERS 1,000 ML IV ONE (12:42)
[2024-10-02 13:33] LABS: Appearance,Urine Cloudy (Clear); Bacteria,Urine Moderate /hpf; Bilirubin,Urine Negative (Negative); Blood,Urine Moderate (Negative); Color,Urine Light Yellow; Glucose,Urine (UA) Negative (Negative); Ketones,Urine Negative (Negative); Leukocyte Esterase,Urine Large (Negative); Mucus,Urine Rare /hpf; Nitrite,Urine Negative (Negative); PH, Urine 5.5 (5.0-8.0); Protein,Urine 1+ (Negative); RBC,Urine 8 /hpf (0-5); Specific Gravity,Urine 1.013 (1.001-1.035); Squamous Epithelial Cell,Urine <1 /hpf (0-4); Urobilinogen,Urine <2.0 mg/dL (<2.0); WBC,Urine >182 /hpf (0-5)
[2024-10-02 13:54] LABS: ALT 20 U/L (4-34); AST 25 U/L (14-36); African American GFR (CKD) 30 (>60 ml/min/1.73 sqM); Albumin 4.1 g/dL (3.5-5.0); Alkaline Phosphatase 102 U/L (38-126); Anion Gap 13 mmol/L; Blood Urea Nitrogen 38 mg/dL (7-17); Calcium 9.9 mg/dL (8.4-10.2); Carbon Dioxide 24 mmol/L (22-30); Chloride 98 mmol/L (98-107); Glucose 112 mg/dL (74-99); Magnesium 1.6 mg/dL (1.6-2.3); Non-African American GFR(CKD) 26 (>60 ml/min/1.73 sqM); Potassium 4.5 mmol/L (3.5-5.1); Sodium 135 mmol/L (137-145); Total Bilirubin 1.4 mg/dL (0.2-1.3); Total Protein 6.5 g/dL (6.3-8.2)
[2024-10-02] MEDS ORDERED: NALOXONE 0.4 MG/ML 1 ML VIAL IV PRN (14:02)
[2024-10-02] MEDS: LACTATED RINGERS 1,000 ML IV SCH (14:51)
[2024-10-02] MEDS: ACETAMINOPHEN TAB 325 MG TAB PO PRN (20:03)
[2024-10-02] MEDS: METOPROLOL TARTRATE 25 MG TAB PO SCH (21:20)
[2024-10-02] MEDS: ONDANSETRON 4 MG/2 ML VIAL IVP STA (21:20)
--- NOTE | 2024-10-02 21:57 | P.HPIM ---
History of Present Illness H&P Date: 10/02/24 Chief Complaint: Nausea and vomiting Patient is a 54-year-old female with a known history of renal transplant in 2016, history of breast cancer, GERD, hypertension and depression and other medical problems presents to ER with complaints of nausea and vomiting for the past couple of days. Patient is also having diarrhea yesterday. Denied any abdominal pain. Denied any recent illnesses. Denied any dysuria or hematuria. Patient was tachycardic and febrile with Tmax 101.1 in the ER. No complaints of chest pain or shortness of breath. No cough or sputum production. Laboratory data showed WBC 14.9 hemoglobin 12.4 and platelets 195 Sodium 135 potassium 4.5 chloride 98 bicarb is 24 BUN 38 and creatinine 2.08 Blood sugar 112 and lactic acid 1.4 and urinalysis showed cloudy with 1+ protein moderate blood large leukocyte esterase with RBCs 18 WBCs greater than 182 and squamous epithelial cells less than 1. Review of Systems Constitutional: Patient does have fever and chills. No generalized weakness or weight loss. Abdomen: Nausea and vomiting. Diarrhea x 1. No abdominal pain. Cardiovascular: Patient denies any chest pain or short of breath no palpitations. Respiratory: patient denied any cough or sputum production. No shortness of breath Neurologic: Patient denied any numbness or tingling. no headache. Musculoskeletal: Patient denies any complaints of joint swelling or deformity. Skin: Negative Psychiatric: Negative Endocrine: No heat or cold intolerance. No recent weight gain. Genitourinary: No dysuria or hematuria. All other 14 point ROS negative except the above Past Medical History Past Medical History: Cancer, Dialysis, GERD/Reflux, Hypertension, Renal Disease Additional Past Medical History / Comment(s): migraines, - hemodialysis TUE,RACHEL,SAT, end stage renal failure, pt has kidney transplant 2016 hx heart murmer, anemia, hx breast cancer History of Any Multi-Drug Resistant Organisms: None Reported Past Surgical History: Section, Hysterectomy, Tonsillectomy Additional Past Surgical History / Comment(s): peritoneal dialysis catheter insertion/removal, hemodialysis fistula-rt arm, kidney transplant Past Anesthesia/Blood Transfusion Reactions: Previous Problems w/ Anesthesia, Postoperative Nausea & Vomiting (PONV) Additional Past Anesthesia/Blood Transfusion Reaction / Comment(s): sometimes causes High BP Past Psychological History: Depression Smoking Status: Never smoker Past Alcohol Use History: None Reported Past Drug Use History: None Reported - Past Family History Sister(s) Family Medical History: Cancer Additional Family Medical History / Comment(s): melanoma Mother Family Medical History: Cancer Additional Family Medical History / Comment(s): lung cancer Medications and Allergies Home Medications Medication Instructions Recorded Confirmed Type Tacrolimus [Envarsus Xr] 2 mg PO DAILY 03/27/19 10/02/24 History mycophenolate mofetiL [Cellcept] 500 mg PO BID 12/20/21 10/02/24 History predniSONE 5 mg PO DAILY 12/20/21 10/02/24 History Losartan [Cozaar] 50 mg PO DAILY 10/02/24 10/02/24 History Metoprolol Tartrate [Lopressor] 75 mg PO BID 10/02/24 10/02/24 History Allergies Allergy/AdvReac Type Severity Reaction Status Date / Time baclofen Allergy "could not Verified 10/02/24 17:56 function" codeine Allergy Vomiting Verified 10/02/24 17:56 sertraline HCl [From Zoloft] Allergy Rash/Hives Verified 10/02/24 17:56 Physical Exam Vitals: Vital Signs Temp Pulse Pulse Resp BP BP Pulse Ox 10/02/24 20:51 100.2 F H 117 H 17 135/84 97 10/02/24 19:53 101.1 F H 122 H 18 136/78 98 10/02/24 18:24 78 18 143/75 96 10/02/24 14:59 117 H 18 137/78 98 10/02/24 11:59 98.7 F 119 H 16 110/73 97 Intake and Output 10/02/24 10/02/24 10/02/24 06:59 14:59 22:59 Other: Weight 78.018 kg PHYSICAL EXAMINATION: Patient is lying in the bed comfortably, no acute distress, awake alert and oriented.. HEENT: Normocephalic. Neck is supple. Pupils reactive. Nostrils clear. Oral cavity is moist. Neck reveals no JVD, carotid bruits, or thyromegaly. CHEST EXAMINATION: Trachea is central. Symmetrical expansion. Lung dodd clear to auscultation and percussion. CARDIAC: Normal S1, S2 with no gallops. No murmurs ABDOMEN: Soft. Bowel sounds normal. No organomegaly. No abdominal bruits. Extremities: reveal no edema. No clubbing or cyanosis Neurologically awake, alert, oriented x3 with well-coordinated movements. No focal deficits noted Skin: No rash or skin lesions. Psychiatric: Coperative. Nonsuicidal Musculoskeletal: No joint swelling or deformity. Normal range of motion. Results CBC & Chem 7: 10/03/24 07:48 10/03/24 07:48 Labs: Abnormal Lab Results - Last 24 Hours (Table) 10/02/24 10/02/24 10/02/24 Range/Units 12:20 13:08 13:08 WBC 14.94 H (4.50-10.00) 10*3/uL MPV 9.3 L (9.5-12.2) fL Immature Gran # 0.07 H (0.00-0.04) 10*3/uL Neutrophils # 12.28 H (1.80-7.70) 10*3/uL Monocytes # 1.16 H (0.20-1.00) 10*3/uL Sodium 135 L (137-145) mmol/L BUN 38 H (7-17) mg/dL Creatinine 2.08 H (0.52-1.04) mg/dL Glucose 112 H (74-99) mg/dL Total Bilirubin 1.4 H (0.2-1.3) mg/dL Urine Appearance Cloudy H (Clear) Urine Protein 1+ H (Negative) Urine Blood Moderate H (Negative) Ur Leukocyte Esterase Large H (Negative) Urine RBC 8 H (0-5) /hpf Urine WBC >182 H (0-5) /hpf Urine Bacteria Moderate H (None) /hpf Urine Mucus Rare H (None) /hpf Thrombosis Risk Factor Assmnt - DVT/VTE Prophylaxis DVT/VTE Prophylaxis: Pharmacologic Prophylaxis ordered Assessment and Plan Assessment: Acute urinary tract infection Sepsis secondary to UTI Hypovolemic hyponatremia History of renal transplant in 2016 on immunosuppressive therapy Hypertension GERD Depression DVT prophylaxis with heparin subcu Plan: Patient will be continued on IV hydration. Continue with antibiotics in the form of ceftriaxone. Follow-up urine culture report. Continue with home medications and ID consult. Symptomatic management for nausea and vomiting. Time with Patient: Greater than 30
[2024-10-03] MEDS: LOSARTAN 50 MG TAB PO SCH (08:20)
[2024-10-03] MEDS: predniSONE 5 MG TAB PO SCH (08:20)
[2024-10-03 08:33] LABS: Basophils # (A) 0.03 10*3/uL (0.00-0.10); Basophils % (A) 0.4 %; Eosinophils # (A) 0.08 10*3/uL (0.04-0.35); Eosinophils % (A) 1.2 %; HCT 31.2 % (37.2-46.3); Lymphocytes # (A) 0.62 10*3/uL (0.90-5.00); MCHC 31.7 g/dL (32.0-37.0); MCV 91.5 fL (80.0-97.0); Mean Platelet Volume 9.5 fL (9.5-12.2); Monocytes # (A) 0.51 10*3/uL (0.20-1.00); Monocytes % (A) 7.4 %; Neutrophils # (A) 5.64 10*3/uL (1.80-7.70); Neutrophils % (A) 81.4 %; Platelet Count 152 10*3/uL (140-440); RBC 3.41 10*6/uL (4.10-5.20); RDW 12.8 % (11.5-14.5); WBC 6.92 10*3/uL (4.50-10.00)
[2024-10-03 08:52] LABS: HGB 9.9 g/dL (12.0-15.0)
[2024-10-03 09:05] LABS: African American GFR (CKD) 35 (>60 ml/min/1.73 sqM); Anion Gap 10 mmol/L; Blood Urea Nitrogen 31 mg/dL (7-17); Calcium 8.8 mg/dL (8.4-10.2); Carbon Dioxide 22 mmol/L (22-30); Chloride 102 mmol/L (98-107); Glucose 80 mg/dL (74-99); Non-African American GFR(CKD) 30 (>60 ml/min/1.73 sqM); Potassium 4.4 mmol/L (3.5-5.1); Sodium 134 mmol/L (137-145)
--- NOTE | 2024-10-03 23:04 | P.CONS ---
History of Present Illness - Reason for Consult Consult date: 10/03/24 Sepsis, UTI Requesting physician: Joyce Gilmore - Chief Complaint Nausea vomiting diarrhea x 2 days - History of Present Illness Patient is a 54-year-old female with a past medical history difficult for reflux hypertension history of breast cancer renal transplant depression presenting to the hospital for evaluation of nausea vomiting and diarrhea in this patient symptom has been going on for about 2 days before presentation to the hospital patient denies high-grade fever however on presentation to the hospital patient was afebrile subsequently spiked a fever of 101.1 F temperature patient was tachycardic but not hypotensive hypoxic she did have elevated white 14.94 with a left shift BUN and creatinine has been mildly elevated electrolytes are normal liver enzymes are normal did have significantly positive UA patient has been started on Rocephin infectious disease was consulted for further management of antibiotic therapy, patient is immunocomp romise as she is currently getting CellCept and prednisone post kidney transplant Review of Systems Positive point and negatives has been mentioned in the HPI, complete review of systems was performed and all other systems are negative Past Medical History Past Medical History: Cancer, Dialysis, GERD/Reflux, Hypertension, Renal Disease Additional Past Medical History / Comment(s): migraines, - hemodialysis TUE,RACHEL,SAT, end stage renal failure, pt has kidney transplant 2016 hx heart murmer, anemia, hx breast cancer History of Any Multi-Drug Resistant Organisms: None Reported Past Surgical History: Section, Hysterectomy, Tonsillectomy Additional Past Surgical History / Comment(s): peritoneal dialysis catheter insertion/removal, hemodialysis fistula-rt arm, kidney transplant Past Anesthesia/Blood Transfusion Reactions: Previous Problems w/ Anesthesia, Postoperative Nausea & Vomiting (PONV) Additional Past Anesthesia/Blood Transfusion Reaction / Comm: sometimes causes High BP Past Psychological History: Depression Smoking Status: Never smoker Past Alcohol Use History: None Reported Past Drug Use History: None Reported - Past Family History Sister(s) Family Medical History: Cancer Additional Family Medical History / Comment(s): melanoma Mother Family Medical History: Cancer Additional Family Medical History / Comment(s): lung cancer Medications and Allergies Home Medications Medication Instructions Recorded Confirmed Type Tacrolimus [Envarsus Xr] 2 mg PO DAILY 03/27/19 10/02/24 History mycophenolate mofetiL [Cellcept] 500 mg PO BID 12/20/21 10/02/24 History predniSONE 5 mg PO DAILY 12/20/21 10/02/24 History Losartan [Cozaar] 50 mg PO DAILY 10/02/24 10/02/24 History Metoprolol Tartrate [Lopressor] 75 mg PO BID 10/02/24 10/02/24 History Allergies Allergy/AdvReac Type Severity Reaction Status Date / Time baclofen Allergy "could not Verified 10/02/24 17:56 function" codeine Allergy Vomiting Verified 10/02/24 17:56 sertraline HCl [From Zoloft] Allergy Rash/Hives Verified 10/02/24 17:56 Physical Exam Vitals: Vital Signs Temp Pulse Pulse Resp BP BP Pulse Ox 10/03/24 07:39 98.6 F 100 18 115/65 99 10/03/24 01:38 99.5 F 93 17 108/70 97 10/02/24 20:51 100.2 F H 117 H 17 135/84 97 10/02/24 19:53 101.1 F H 122 H 18 136/78 98 10/02/24 18:24 78 18 143/75 96 10/02/24 14:59 117 H 18 137/78 98 Intake and Output 10/02/24 10/03/24 10/03/24 22:59 06:59 14:59 Intake Total 180 Balance 180 Intake: Oral 180 Other: Voiding Method Toilet Toilet Toilet # Voids 1 2 Weight 78.018 kg GENERAL DESCRIPTION: Middle-age female lying in bed, no distress. No tachypnea or accessory muscle of respiration use. HEENT: Shows Pallor , no scleral icterus. Oral mucous membrane is dry. NECK: Trachea central, no thyromegaly. LUNGS: Unlabored breathing. Clear to auscultation anteriorly. No wheeze or crackle. HEART: S1, S2, regular rate and rhythm. No loud murmur ABDOMEN: Soft, no tenderness , guarding or rigidity, no organomegaly EXTREMITIES: No edema of feet. SKIN: No rash, no masses palpable. NEUROLOGICAL: The patient is awake, alert, oriented x3, mood and affect normal. Results CBC & Chem 7: 10/03/24 07:48 10/03/24 07:48 Labs: Abnormal Lab Results - Last 24 Hours (Table) 06/21/25 06/21/25 06/22/25 Range/Units 13:08 13:08 07:48 RBC 3.41 L (4.10-5.20) 10*6/uL Hgb 9.9 L D (12.0-15.0) g/dL Hct 31.2 L (37.2-46.3) % MCHC 31.7 L (32.0-37.0) g/dL Lymphocytes # 0.62 L (0.90-5.00) 10*3/uL Sodium 135 L (137-145) mmol/L BUN 38 H (7-17) mg/dL Creatinine 2.08 H (0.52-1.04) mg/dL Glucose 112 H (74-99) mg/dL Total Bilirubin 1.4 H (0.2-1.3) mg/dL Urine Appearance Cloudy H (Clear) Urine Protein 1+ H (Negative) Urine Blood Moderate H (Negative) Ur Leukocyte Esterase Large H (Negative) Urine RBC 8 H (0-5) /hpf Urine WBC >182 H (0-5) /hpf Urine Bacteria Moderate H (None) /hpf Urine Mucus Rare H (None) /hpf 10/03/24 Range/Units 07:48 RBC (4.10-5.20) 10*6/uL Hgb (12.0-15.0) g/dL Hct (37.2-46.3) % MCHC (32.0-37.0) g/dL Lymphocytes # (0.90-5.00) 10*3/uL Sodium 134 L (137-145) mmol/L BUN 31 H (7-17) mg/dL Creatinine 1.83 H (0.52-1.04) mg/dL Glucose (74-99) mg/dL Total Bilirubin (0.2-1.3) mg/dL Urine Appearance (Clear) Urine Protein (Negative) Urine Blood (Negative) Ur Leukocyte Esterase (Negative) Urine RBC (0-5) /hpf Urine WBC (0-5) /hpf Urine Bacteria (None) /hpf Urine Mucus (None) /hpf Assessment and Plan (1) Sepsis Current Visit: Yes Status: Acute Code(s): A41.9 - SEPSIS, UNSPECIFIED ORGANISM SNOMED Code(s): 37444107 (2) UTI (urinary tract infection) Current Visit: Yes Status: Acute Code(s): N39.0 - URINARY TRACT INFECTION, SITE NOT SPECIFIED SNOMED Code(s): 05941301 Plan: 1patient presented hospital with sepsis in this patient did have fever tachycardia elevated white count meeting currently for SIRS/sepsis also 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 please excuse any gramm atical, word or spelling errors. Time with Patient: Greater than 30
--- NOTE | 2024-10-03 23:37 | P.PN ---
Subjective Progress Note Date: 10/03/24 Patient is a 54-year-old female with a known history of renal transplant in 2016, history of breast cancer, GERD, hypertension and depression and other medical problems presents to ER with complaints of nausea and vomiting for the past couple of days. Patient is also having diarrhea yesterday. Denied any abdominal pain. Denied any recent illnesses. Denied any dysuria or hematuria. Patient was tachycardic and febrile with Tmax 101.1 in the ER. No complaints of chest pain or shortness of breath. No cough or sputum production. Laboratory data showed WBC 14.9 hemoglobin 12.4 and platelets 195 Sodium 135 potassium 4.5 chloride 98 bicarb is 24 BUN 38 and creatinine 2.08 Blood sugar 112 and lactic acid 1.4 and urinalysis showed cloudy with 1+ protein moderate blood large leukocyte esterase with RBCs 18 WBCs greater than 182 and squamous epithelial cells less than 1. 10/03/2024 Patient is resting in the bed. Awake alert and oriented. No complaints of abdominal pain. No nausea or vomiting. Tolerating oral diet. Patient is being continued on antibiotics in the form of ceftriaxone. Urine culture showed gram-negative bacilli. Laboratory data showed WBC 6.9 hemoglobin 9.9 and platelets 152 sodium 134 potassium 4.4 chloride 102 bicarb is 22 BUN 31 and creatinine 1.83 and blood sugar 80. Current medications reviewed. Objective - Vital Signs Vital signs: Vital Signs Temp 98.9 F 10/03/24 13:40 Pulse 93 10/03/24 13:40 Resp 20 10/03/24 13:40 BP 94/60 10/03/24 13:40 Pulse Ox 97 10/03/24 13:40 FiO2 Intake & Output 10/02/24 10/03/24 10/03/24 18:59 06:59 18:59 Intake Total 360 Balance 360 Weight 78.018 kg Intake: Oral 360 Other: Voiding Method Toilet Toilet # Voids 2 2 # Bowel Movements 1 - Exam PHYSICAL EXAMINATION: Patient is lying in the bed comfortably, no acute distress, awake alert and oriented.. HEENT: Normocephalic. Neck is supple. Pupils reactive. Nostrils clear. Oral cavity is moist. Neck reveals no JVD, carotid bruits, or thyromegaly. CHEST EXAMINATION: Trachea is central. Symmetrical expansion. Lung dodd clear to auscultation and percussion. CARDIAC: Normal S1, S2 with no gallops. Positive systolic murmur ABDOMEN: Soft. Bowel sounds normal. No organomegaly. No abdominal bruits. Extremities: reveal no edema. No clubbing or cyanosis Neurologically awake, alert, oriented x3 with well-coordinated movements. No focal deficits noted Skin: No rash or skin lesions. Psychiatric: Coperative. Nonsuicidal Musculoskeletal: No joint swelling or deformity. Normal range of motion. - Labs CBC & Chem 7: 10/03/24 07:48 10/03/24 07:48 Labs: Abnormal Lab Results - Last 24 Hours (Table) 10/03/24 10/03/24 Range/Units 07:48 07:48 RBC 3.41 L (4.10-5.20) 10*6/uL Hgb 9.9 L D (12.0-15.0) g/dL Hct 31.2 L (37.2-46.3) % MCHC 31.7 L (32.0-37.0) g/dL Lymphocytes # 0.62 L (0.90-5.00) 10*3/uL Sodium 134 L (137-145) mmol/L BUN 31 H (7-17) mg/dL Creatinine 1.83 H (0.52-1.04) mg/dL Assessment and Plan Assessment: Acute urinary tract infection Sepsis secondary to UTI Hypovolemic hyponatremia History of renal transplant in 2016 on immunosuppressive therapy Hypertension GERD Depression DVT prophylaxis with heparin subcu Plan: Patient will be continued on IV hydration. Changed to normal saline. Continue with antibiotics in the form of ceftriaxone. Urine culture showed gram-negative bacilli. Follow-up final culture report.. Continue with home medications. ID is on board. Symptomatic management for nausea and vomiting.
[2024-10-04] MEDS: CEFDINIR 300 MG CAP PO SCH (19:35)
[2024-10-04 19:54] VITALS: BP 138/86; PULSE 92; RESP 16; TEMP 98
--- NOTE | 2024-10-05 17:15 | P.PN ---
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 Not able to place an IV. No new lab was obtained today urine is growing gram-negative with sensitivities pending blood culture for negative Objective - Vital Signs Vital signs: Vital Signs Temp 98.2 F 10/04/24 14:55 Pulse 86 10/04/24 14:55 Resp 18 10/04/24 14:55 BP 107/69 10/04/24 14:55 Pulse Ox 99 10/04/24 14:55 FiO2 Intake & Output 10/03/24 10/04/24 10/04/24 18:59 06:59 18:59 Intake Total 582 80 Balance 582 80 Intake: Oral 582 80 Other: Voiding Method Toilet Toilet Toilet # Voids 2 2 3 # Bowel Movements 1 1 - Exam GENERAL DESCRIPTION: Middle-age female up in the chair in no distress RESPIRATORY SYSTEM: Unlabored breathing , decreased breath sounds at bases HEART: S1 S2 regular rate and rhythm , ABDOMEN: Soft , no tenderness EXTREMITIES: No edema feet - Labs CBC & Chem 7: 10/03/24 07:48 10/03/24 07:48 Labs: Microbiology - Last 24 Hours (Table) 10/02/24 14:21 Blood Culture - Preliminary Blood 10/02/24 13:08 Urine Culture - Preliminary Urine,Voided Gram Neg Bacilli Assessment and Plan (1) Sepsis Status: Acute Code(s): A41.9 - SEPSIS, UNSPECIFIED ORGANISM SNOMED Code(s): 41304088 (2) UTI (urinary tract infection) Status: Acute Code(s): N39.0 - URINARY TRACT INFECTION, SITE NOT SPECIFIED SNOMED Code(s): 42987830 Plan: 1patient presented hospital with sepsis in this patient did have fever tachycardia elevated white count meeting currently for SIRS/sepsis also 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 in this patient did have significantly positive UA no other obvious focus of infection likely from enteric gram-negative pathogen 2-patient is immunocompromise as she is currently on CellCept and prednisone post renal transplant 3-patient blood culture negative urine is growing gram-negative with ID sensitivities pending responded to the Rocephin unfortunately lost IV and patient insisting on going home we will suggest a 10-day course of oral Ceftin and follow-up on the urine culture adjust antibiotic if needed discussed with SUP[employer] ENGINEER for admitting team Dictation was produced using [facility] dictation software. please excuse any grammatical, word or spelling errors. Time with Patient: Less than 30
--- NOTE | 2024-10-06 16:44 | P.DS ---
Providers Date of admission: 10/02/24 14:04 Attending physician: Joyce Gilmore Consults: 10/02/24 21:56 Consult Physician Routine Consulting Provider: Zachary Bella Consult Reason/Comments: Sepsis, UTI, immunosuppressed Do you want consulting provider notified?: Yes [facility] Course: Final Diagnosis Acute urinary tract infection Sepsis secondary to UTI Hypovolemic hyponatremia History of renal transplant in 2016 on immunosuppressive therapy Hypertension GERD Depression Discharge Disposition Patient stable for discharge home with overall guarded prognosis. Will follow- up on urine cultures and will continue on a course of oral Ceftin on discharge. Her renal function has improved would recommend to repeat a BMP in 2 to 3 days on an outpatient basis. Follow-up with her PCP Dr. Rogers in 1 to 2 days. Hospital Course This is a pleasant 54 revealed medical history of renal transplant in 2016, breast cancer, GERD, hypertension and depression. Patient comes to the ER with complaints of nausea vomiting for the past couple days. She was also having diarrhea. No abdominal pain. Denies any recent illness that she is not having any dysuria or hematuria. She was tachycardic and had a fever of 101 in the ER. No complaints of chest pain or shortness of breath. No cough or sputum production. Patient was been to the hospital with a BUN of 38 creatinine of 2.08 and a positive urinalysis. She was started empirically on IV ceftriaxone and cultures were showing gram-negative bacilli. She was monitored clinically had improvement of her renal function with a BUN down to 31 and a creatinine of 1.83. She is up ambulating without difficulty. Her white blood cell count is now normal. She has been tolerating diet wants to be discharged home. ID following and as patient lost her IV access recommended for patient to discharge home on oral Ceftin and follow-up on urine cultures. Please see medication reconciliation for a list of current medications. Thank you for allowing us to participate in the care of this patient. The impression and plan of care has been dictated by Gwendolyn Zayas, Nurse Practitioner as directed. Dr. Gigi MD I have performed a history and physical examination and medical decision making of this patient, discussed the same with the dictator, and agree with the dictators assessment and plan as written, documented as a scribe. Based on total visit time, I have performed more than 50% of this visit. Patient Condition at Discharge: Stable Plan - Discharge Summary New Discharge Prescriptions: New cefuroxime axetiL [Ceftin] 500 mg PO BID #20 tab Continue Tacrolimus [Envarsus Xr] 2 mg PO DAILY predniSONE 5 mg PO DAILY Metoprolol Tartrate [Lopressor] 75 mg PO BID mycophenolate mofetiL [Cellcept] 500 mg PO BID Losartan [Cozaar] 50 mg PO DAILY Discharge Medication List Tacrolimus [Envarsus Xr] 2 mg PO DAILY 03/27/19 [History] mycophenolate mofetiL [Cellcept] 500 mg PO BID 12/20/21 [History] predniSONE 5 mg PO DAILY 12/20/21 [History] Losartan [Cozaar] 50 mg PO DAILY 10/02/24 [History] Metoprolol Tartrate [Lopressor] 75 mg PO BID 10/02/24 [History] cefuroxime axetiL [Ceftin] 500 mg PO BID #20 tab 10/04/24 [Rx] Follow up Appointment(s)/Referral(s): Kemar Rogers DO [Primary Care Provider] - 1-2 days Zachary Bella MD [STAFF PHYSICIAN] - 1 Week Ambulatory/Diagnostic Orders: Basic Metabolic Panel [LAB.AMB] Time Frame: 3 Days, Location: None Selected Patient Instructions/Handouts: Dehydration (DC), Urinary Tract Infection in Women (DC) Discharge Disposition: HOME SELF-CARE
== END 2024-10-04 19:53 | disposition home or self-care (01) | DRG 871 ==
LOC: EC 11:45 → 6NMEDSUR 14:03 → OBSVTOIN 14:04 → 6NMEDSUR 17:33
PROVIDERS: ADMIT Internal Medicine; ATTEND Internal Medicine
DX: A41.50 Gram-negative sepsis, unspecified (principal); N18.6 End stage renal disease; T86.13 Kidney transplant infection; D84.821 Immunodeficiency due to drugs; I12.0 Hypertensive chronic kidney disease with stage 5 chronic kidney disease or end stage renal disease; Z99.2 Dependence on renal dialysis; F32.A Depression, unspecified; E87.1 Hypo-osmolality and hyponatremia; R65.20 Severe sepsis without septic shock; E86.0 Dehydration; E86.1 Hypovolemia; K21.9 Gastro-esophageal reflux disease without esophagitis; Z79.624 Long term (current) use of inhibitors of nucleotide synthesis; Z79.82 Long term (current) use of aspirin; Z79.899 Other long term (current) drug therapy; Z85.3 Personal history of malignant neoplasm of breast
CPT/HCPCS: 36415; 80048; 80053; 81001; 83605; 83735; 85025; 87040; 87077; 87086; 87186; 96361; 96365; 96375; 99285